=== PATIENT | female | born 1945 | race Caucasian/White ===

== ENCOUNTER 2018-02-22 18:06 | Inpatient (IN) | payer MEDICARE, OTHER ==
[~2018-02-22] VITALS: Ht 152.4 cm; Wt 85.3 kg
[2018-02-22] MEDS ORDERED: CHOL100011 PO (20:08)
[2018-02-22] MEDS ORDERED: LEVO112T5 PO (20:08)
[2018-02-22] MEDS ORDERED: ENAL10TA PO (20:08)
[2018-02-22] MEDS ORDERED: BUSP10TA PO (20:08)
[2018-02-22] MEDS ORDERED: ESOM20CA PO (20:08)
[2018-02-22] MEDS ORDERED: QUET300T5 PO (20:08)
[2018-02-22] MEDS ORDERED: FEBU40TA PO (20:08)
[2018-02-22] MEDS ORDERED: SERT100T PO (20:08)
[2018-02-22] MEDS ORDERED: LORAZEPAM IM PRN (20:30)
[2018-02-22] MEDS ORDERED: HALDOL PO PRN ×2 (20:30)
[2018-02-22] MEDS ORDERED: HALDOL IM PRN (20:30)
[2018-02-22] MEDS ORDERED: ATIVAN PO PRN (20:30)
[2018-02-22 21:00] VITALS: BP 154/75
--- NOTE | 2018-02-22 21:30 | NUR ---
Admission 72 year old, , retired, female presents to [facility] with daughter and grandaughter, as a direct admit from [facility] ED on voluntary status for depression with psychotic features. The patient's family contacted her psychiatrist, Dr. Brown, after the patient has had increased confusion with paranoia and decrease in "ability to function" and was referred here for inpatient admission. The patient presents to the unit anxious and tearful with complaint of depression and anxiety which is characterized by tearfulness, feelings of paranoia AEB belief that people are watching her house and tampering with her phone, expressing feelings of worthlessness AEB statement "I feel like a burden", confirming feelings of hopelessness, expressing feelings of guilt over inability to help care for older sister, loss of motivation, decreased sleep for the past several days at two to four hours a night, and decreased appetite over the past week. The patient also reports problems with short term memory which the family reports has been severe over the past week. The patient has difficulty focusing on topics of converation at times and must be reminded frequently. The onset of depression was two years ago two and precipated by multiple deaths over the past two years. The current symptoms have been worse according to the family over the past few weeks and aggravated by stress from working daily after three years of being home and unemployed. Her symptoms are further aggravated by decreased sleep and concern over the health of her 95 year old sister. The patient is treated by Dr. Brown. The family reports they are unsure if the patient has been taking her prescribed medications appropriately.
[2018-02-22] MEDS: BUSPAR PO SCH (21:36)
--- NOTE | 2018-02-22 21:39 | PCM.EKG ---
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
[2018-02-22] MEDS ORDERED: SEROQUEL ONE (21:50)
--- NOTE | 2018-02-22 22:01 | NUR ---
SEROQUEL 300MG PO ADMIN PER ANGELES MORRIS RN. MED IS NON FORMULARY AND NOT AVAILABLE ON [facility]. PAPER [facility] FILLED OUT.
--- NOTE | 2018-02-22 23:02 | PSYCH ---
DATE OF SERVICE: 02/22/2018 INITIAL PSYCHIATRIC EVALUATION CHIEF COMPLAINT: "I have been losing my mind." HISTORY OF PRESENT ILLNESS: The patient is a 72-year-old female who is a voluntary admission to the Behavioral Health Unit at the [facility]. The patient was referred by Dr. Wayne Brown from [facility]. The patient reports she has had increased confusion over the past few weeks. She reports having severe depression. She reports having vegetative symptoms. She reports having some suicidal thoughts. She states that she will be cooperative on this unit. She denies homicidal ideation. She has a slow thought process. She reports she has been sleeping poorly at night. She has a decreased appetite and has lost 25 pounds over the past 3 months. The patient has feelings of guilt. She has overwhelmed easily. She has a poor concentration level. She has a decreased interest in activities. She has psychomotor retardation. She reports having auditory and visual hallucinations. She has paranoia that people are out to get her. She is not currently manic or hypomanic. She reports a high anxiety level. She denies having any anxiety attacks. She voices no other concerns at this time. She does have a history of chronic pain issues. PAST PSYCHIATRIC HISTORY: The patient has been hospitalized at the [facility] in [place], [place] in the past. She has been hospitalized at the [facility] in the past. She has been seen by , Dr. Otto and Dr. Brown in the past. She has been on multiple psychotropic medications in the past. She reports that Cymbalta was helpful in the past. She is currently on Zoloft, which she does not think is very helpful. She has never attempted suicide before. PAST MEDICAL HISTORY: 1. Hypertension. 2. Hypothyroidism. 3. History of breast cancer. 4. History of back surgery. ALLERGIES: 1. ASPIRIN. 2. CELECOXIB. 3. CODEINE. 4. CYCLOBENZAPRINE. 5. PREGABALIN. 6. ZOLPIDEM. CURRENT MEDICATIONS: 1. Vitamin B12 p.o. daily. 2. Seroquel 100 mg p.o. at bedtime. 3. Levothyroxine 112 mcg p.o. daily. 4. Enalapril 10 mg p.o. b.i.d. 5. Zoloft 150 mg p.o. daily. 6. BuSpar 10 mg p.o. b.i.d. 7. Calcium/vitamin D p.o. b.i.d. 8. Multivitamin p.o. daily. 9. On 4 liters of oxygen at bedtime. FAMILY PSYCHIATRIC HISTORY: The patient reports significant mental health problems in her family. She reports her mother and sister both have depression. She reports family members have been on multiple psychotropic medications in the past. SOCIAL HISTORY: The patient is and lives with her . Her currently works. She is not working and staying at home. She has not been driving over the past few weeks. She denies using alcohol, illicit drugs or tobacco. She smoked cigarettes in the past. She has two daughters. She reports not functioning well at home. OBJECTIVE: VITAL SIGNS: The patient's vital signs were stable. She is on 4 liters of oxygen at night. Her weight is 199 pounds. She has lost 25 pounds over the past 3 months. Her height is 5 feet 2 inches. GENERAL: She was in no physical pain or distress at the time of the interview. REVIEW OF SYSTEMS: CONSTITUTIONAL: Recent weight loss. Some fatigue. Some insomnia. NEUROLOGICAL: No tremors. No weakness. No dizziness. PSYCHIATRIC: Positive for depression. Positive for anxiety. Positive for psychosis. No mariaelena. GASTROINTESTINAL: No diarrhea, no nausea, no constipation, no GERD symptoms, no vomiting. GENITOURINARY: No problems urinating. No pain on urination. CARDIOVASCULAR: No chest pain or chest palpitations. RESPIRATORY: No shortness of breath. No wheezing or coughing. SKIN: No problems reported. ENDOCRINE: No heat or cold intolerance. EXTREMITIES: No swelling or edema. EYES: No recent changes in vision. EARS: No recent changes in hearing. Review of systems otherwise negative, reviewed by Dr. Yancey. MENTAL STATUS EXAMINATION: MUSCLE STRENGTH AND TONE: Within normal limits for age. GAIT AND STATION: Within normal limits for age. APPEARANCE: Well-groomed and good hygiene. Appears stated age. Casual attire. Normal weight. Her family states that she has aged over the past few years. ATTITUDE AND BEHAVIOR: Cooperative. Good eye contact. Psychomotor retardation. MOOD AND AFFECT: Mood is severely depressed. Affect is guarded and dysthymic. ATTENTION AND CONCENTRATION: Fair attention and fair concentration. ORIENTATION: Fully oriented for interview. Able to sign in voluntarily. SPEECH: Regular rate and volume. JUDGEMENT AND INSIGHT: Fair judgment, fair insight. THOUGHT PROCESS: Logical and goal directed at times. Loose and tangential at times. LANGUAGE: Mongolian. THOUGHT CONTENT: Negative for suicidal or homicidal ideation at this time. She had suicidal thoughts earlier today. She feels hopeless and helpless. No auditory or visual hallucinations currently. She reports having constant auditory and visual hallucinations. She has paranoia. FUND OF KNOWLEDGE: Within normal limits. ASSOCIATIONS: Loose associations at times. MEMORY: Recent memory has decreased recently. Remote memory intact. STRENGTHS: Good family support. Good physical health. WEAKNESSES: Loss of memory. Chronic severe depressive symptoms. COGNITIVE IMPAIRMENTS: Yes. ASSESSMENT: Major depressive disorder with psychotic features; generalized anxiety disorder; dementia; insomnia. PROGNOSIS: Fair to guarded. ESTIMATED LENGTH OF STAY: 7-10 days. TREATMENT PLAN: 1. The patient will be a voluntary admission to the Behavioral Health Unit at the [facility]. 2. The patient will be discontinued on Zoloft. The patient will be started on Cymbalta 60 mg p.o. daily. The patient will continue Seroquel 300 mg p.o. at bedtime and BuSpar 10 mg p.o. b.i.d. The patient will be started on Haldol 2 mg p.o. or IM q. 6 hours p.r.n. hallucinations and Ativan 0.5 mg p.o. or IM q. 6 hours p.r.n. anxiety. 3. The patient will see the general medical doctor for general medical health issues. 4. The patient was encouraged to participate in all groups and activities. Jayne Yancey IV MD DR: /bradford JOB# [id number]
[2018-02-23] MEDS: SYNTHROID PO SCH (06:07)
[2018-02-23 07:39] VITALS: BP 148/61
[2018-02-23] MEDS: BUSPAR PO SCH ×2 (08:53→21:23)
[2018-02-23] MEDS: CYMBALTA PO SCH (08:53)
--- NOTE | 2018-02-23 09:00 | NUR ---
AM MEDS WHEN GIVING AM MEDS FOUND PT IN HER ROOM SITTING ON HER BED. EXPLAINED TO PT THAT HAD HER CYMBALTA AND HER BUSPAR. ASKED PT IF SHE WOULD LIKE TO TAKE THEM THIS MORNING. PT STATED "YES SHE WOULD" AND REACHED FOR THE CUP WITH THE MEDS IN IT. PT TOOK PILLS AND SWALLOWED THEM WITH SOME WATER.
--- NOTE | 2018-02-23 10:14 | NUR ---
Telemed Pt was seen by Isatu Mejia DNP via telemed. No new orders received @ this time. Pt was provided with information regarding changes in medications.
--- NOTE | 2018-02-23 10:14 | PRM.PN ---
Mood: ISOLATING TO HER ROOM Sleep: SLEPT 7 HOURS LAST NIGHT Appetite: SKIPPED BREAKFAST TODAY Suidical thoughts: DENIES Homicidal thoughts: DENIES Recent stressors: WORKING OUTSIDE THE HOME, CHRONIC KLONOPIN STOPPED Family support: GOOD Aggressive Behavior: NONE NEEDED Ability to Perform ADL'sc: GOOD Psychotic sympstoms: PARANOID ABOUT "PLAYING MIND GAMES" Manic Symptoms: NONE NOTED Living situation: WITH SPOUSE Illicit Drug usec: NONE Alcoholo use: NONE Tobacco use: NONE Family,PT,Surgical,&Current HX: (1) Major depressive disorder with psychotic features Anxity Symptoms: PRESENT, QUESTIONABLE PANIC ATTACKS Anger/Irritablility: DENIES Muscle Strength & Tone: WNL Gait & Station: WNL Appearance: Casual attire, Normal weight, Appears age stated Attitude & Behaviour: Cooperative/Pleasant, Good eye contact, Psychomotor retardation Mood & Affect: Flat, Depressed Orientation: Fully oriented per interv Attention/Concentration: Poor attention, Poor concentration Speech: Reg rate/vol/rhyth/prosod Judgement/Insight: Poor judgement, Poor insight Thought Process: Linear/goal directed Language: Maltese Thought content/Abnormal/Psych: None/normal Fund of Knowledge: WNL Associations: WNL/Normal Associations Memory (recent and remote): Recent memory repaired Constitutional: None Neurological: None Psychiatric: Depressed, Anxious, Psychosis [place] I: MDD, SEVERE WITH PSYCHOTIC FEATURES [place] II: DEFERRED [place] III: SEE PMH AND MEDICAL CHART [place] IV: STRESS OF MENTAL ILLNESS [place] V: 25 Assessment/Plan Assessment/Plan Patient History: FHx: depression G8 SISTER FHx: suicide Cousin, Onset:Unknown (The patient talks about having a close cousin that completed suicide "a long time ago") Plan Vital Signs Date Time Temp Pulse Resp B/P (MAP) Pulse Ox O2 Delivery O2 Flow Rate FiO2 02/23/18 07:39 97.9 91 16 148/61 (90) 93 Room Air 97.9 Allergies Coded Allergies Type Severity Reaction Last Updated Verified aspirin Allergy Unknown 02/22/18 Yes celecoxib Allergy Unknown 02/22/18 Yes codeine Allergy Unknown 02/22/18 Yes cyclobenzaprine Allergy Unknown 02/22/18 Yes pregabalin Allergy Unknown 02/22/18 Yes zolpidem Allergy Unknown 02/22/18 Yes Intake and Output 02/23/18 07:00 Intake Total 50 ml Balance 50 ml Intake Oral 50 ml # Voids 2 THE PATIENT WAS SEEN BY GAURI ROTHMAN VIA TELEMEDICINE EQUIPMENT (SUPPORTED BY [facility]) ALONG WITH THE TREATMENT TEAM. CYMBALTA WAS STARTED YESTERDAY,SERTRALINE WAS STOPPED. SHE REPORTS THAT SHE THINKS THAT HER HAS BEEN "PLAYING MIND TRICKS" ON HER. SHE FEELS THAT HE IS TIRED OF TAKING CARE OF HER. SHE DENIES SI/HI. SHE DOES ENDORSE HAVING DEPRESSION AND ANXIETY. SHE SLEPT LAST NIGHT AND IS TAKING HER MEDICATIONS. SHE REPORTS THAT SHE WAS TAKEN OFF CHRONIC KLONOPIN 3 WEEKS AGO AND SHE FEELS THAT RECENT MEDICATION CHANGES ARE CONTRIBUTING TO HER RECENT DECLINE. ASSESSMENT: MDD, SEVERE WITH PSYCHOTIC FEATURES PLAN: 1. CONTINUE BEHAVIORAL HEALTH MANAGEMENT 2. CONTINUE CURRENT MEDICATIONS PRESCRIBED. STAFF AGREEABLE WITH PLAN 3. ALL PATIENT QUESTIONS ANSWERED RELATED TO MEDICATIONS, PLAN OF CARE, AND EXPECTED OUTCOMES. 4. SAFETY PLAN DISCUSSED. 16 MINUTES SPENT IN SUPPORTIVE THERAPY AND BEHAVIOR MODIFICATION. GAURI ROTHMAN NP Feb 23, 2018 10:14
--- NOTE | 2018-02-23 10:20 | PRM.CONS ---
Consultation History of Present Illness History of Patient Comments Consulting Physician: Dr Yancey, Behavioral Health Reason for Consult: Medical management and Clearance Chief Complaint: None HPI: 72 y/o F with hx of HTN, and Hypothyroidism amongst other co-morbidities who was transferred to our [facility] from [facility] for change in level of consciousness, increased anxiety, and worsening symptoms of depression and paranoia. She has history of hypothyroidisn, HTN, chronic OA HLD , gout, asthma, CKD and mild dementia. She takes Vitamin B12, Esomeprazole, Enalapril, Levothyroxine, calcium tabs and multivitamins in addition to her psych meds. These have been restarted on getting to us. Her Cr prior to leaving [place] was ...She was cooperative during this encounter and denies any new complaints. She has elevated LDL and Total Cholesterol from testing here at [facility]; and A1C is 6.1. Otherwise, she appears to be in good health. She will need baseline labs for [facility]. Allergies: Lyrica Flexeril Celebrex Codeine Ambien Aspirin PMH: Hypothyroidisn, HTN, Chronic OA HLD, Gout, Asthma, CKD Pseudodementia Hx of Breast Cancer Osteporosis Panic attack Hyperglycemia Depression Anxiety Restless Leg Syndrome Diverticulitis Fibromyalgia PSHx: Unknown Family Hx: Father at 73 from Asphyxiation and OA Mother at 87: OA and HI Brothers None Sister 1: at 41 from Heart attack Sister 2: in her 50s from Heart attack in 2016 Sister 3: s/p TKR at age 87, Also dementia and HI Sister 4: Alive and Well Sister 5: Alive and Well Daughter 1: Scokliosis. Alive Daughter 2: Alive and Well. Physical Exam: General: Elderly Female lying in bed initially but got up and sat up when I walked in. Well nourished HEENT: Normocephalic and Atraumatic. 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 No murmurs RS: CTA. No wheezes GI: Soft abd. No organomegaly Extremeties: No edema Laboratory Test 02/23/18 06:58: Hemoglobin A1c 6.1, Triglycerides Level 122, Cholesterol Level 214, LDL Cholesterol, Calculated 121.6, VLDL Cholesterol 24.4, HDL Cholesterol 68, Cholesterol Ratio (LDL/HDL) [id number] Review of Systems Constitutional: Fever, Chills Eyes: Pain, Vision change, Redness ENT: Ear pain, Ear discharge Respiratory: Cough, Shortness of breath Cardiovascular: Chest Pain, Palpitations Gastrointestinal: Nausea, Vomiting Genitourinary: Dysuria, Frequency, Incontinence Musculoskeletal: neck pain, shoulder pain Skin: Rash, Lesions Neurological: Weakness, Numbness Allergies: Coded Allergies: aspirin (Verified Allergy, Unknown, 02/22/18) celecoxib (Verified Allergy, Unknown, 02/22/18) codeine (Verified Allergy, Unknown, 02/22/18) cyclobenzaprine (Verified Allergy, Unknown, 02/22/18) pregabalin (Verified Allergy, Unknown, 02/22/18) zolpidem (Verified Allergy, Unknown, 02/22/18) Scheduled Buspirone Hcl (Buspirone Hcl), 10 MG PO BID, (Reported) Cholecalciferol (Vitamin D3) (Vitamin D), 1,000 UNIT PO DAILY24, (Reported) Enalapril Maleate (Enalapril Maleate), 10 MG PO BID, (Reported) Febuxostat (Uloric), 40 MG PO DAILY24, (Reported) Levothyroxine Sodium (Levothyroxine Sodium), 112 MCG PO ACB, (Reported) Quetiapine Fumarate (Seroquel), 300 MG PO HS, (Reported) Sertraline Hcl (Zoloft), 100 MG PO DAILY24, (Reported) Scheduled PRN Esomeprazole Magnesium (Nexium), 20 MG PO DAILY24 PRN for INDIGESTION, (Reported ) VTE VTE Risk Total Score: 2 VTE Risk Score VTE Risk: Score 0-1 = Low Risk (Aggressive mobilization; early ambulation; no VTE prophylaxis required) Score 2: Moderate Risk (Intermittent/Pneumatic Compression Device OR Lovenox/Heparin/Coumadin) Score 3-4: High Risk (Intermittent/Pneumatic Compression Device AND Lovenox/Heparin/Coumadin) Score > or =5: Highest Risk (Intermittent/Pneumatic Compression Device AND Lovenox/Heparin/Coumadin) VTE Treatment Early ambulation Antico:Hep/LMWH/Coum/Xarelto: No Mechanical device ordered: No Assessment/Plan Assessment/Plan Assessment/Plan HTN, Chronic OA Hypothyroidism; HLD, Gout, Asthma, CKD Pseudodementia Hx of Breast Cancer Osteporosis Panic attack Hyperglycemia Depression Anxiety Restless Leg Syndrome Diverticulitis Fibromyalgia PLAN: I agree with restarting Home meds Will need CBC and CMP for baseline labs, We know she has Stage IV CKD from accompanying paper work from [place]. Avoid Nephrotoxic meds including NSAIDs Mildly Diabetic. Advise to stay on a diabetic diet but monitor FS Glu Continue diet control of HLD. If becomes concerning, add some statin PRN bronchodilators if needed Early ambulation for DVT Ppx GI Ppx with po pepcid Patient History: FHx: depression G8 SISTER FHx: suicide Cousin, Onset:Unknown (The patient talks about having a close cousin that completed suicide "a long time ago") Duration Duration or Time Spent with Pa: 38minutes COTY YI DO Feb 23, 2018 10:20
--- NOTE | 2018-02-23 10:45 | NUR ---
SW ASSESSMENTS: SW ATTEMPTED SW ASSESSMENTS BUT PT WOULD JUST LOOK AT HER AND STATE "I DON'T KNOW". PT DID NOT WANT TO PARTICIPATE IN ASSESSMENTS AT THIS TIME. SW WILL RE-ATTEMPT AT A LATER WHEN AND IF PT DECIDES SHE WANTS TO ANSWER THIS WORKERS QUESTIONS.
[2018-02-23 11:12] LABS: BASOPHIL % 0.6 % (0.0-0.2); EOSINOPHIL # 0.2 10^3/uL (0.0-0.2); EOSINOPHIL % 2.7 % (0.0-5.0); HEMOGLOBIN 13.1 g/dL (12.0-15.0); LYMPHOCYTES # 2.2 10^3/uL (1.0-4.8); LYMPHOCYTES % 31.3 % (24.0-44.0); MEAN CELL HGB 31.2 pg (26-34); MEAN CELL HGB CONCENTRATION 33.4 g/dL (33-37); MEAN CORP VOLUME 93.3 fL (78-100); MEAN PLATELET VOLUME 11.9 fL (7.8-11.0); MONOCYTES # 0.9 10^3/uL (0.3-0.8); MONOCYTES % 12.5 % (5.0-12.0); NEUTROPHIL # 3.7 10^3/uL (1.8-7.7); NEUTROPHILS % 52.8 % (41.0-85.0); NUCLEATED RED BLOOD CELLS 0 % (0-0); PLATELET COUNT 218 10^3/uL (150-400); RED CELL DISTRIBUTION WIDTH 14.5 % (11.5-14.5); WHITE BLOOD CELL 7.1 10^3/uL (4.5-11.0)
[2018-02-23 11:19] LABS: CALCIUM 9.3 mg/dL (8.4-10.5); CARBON DIOXIDE 23.3 mmol/L (20.0-32)
--- NOTE | 2018-02-23 13:07 | NUR ---
CONSENTS ATTEMPT TO GET CONSENTS SIGNED BY PT. PT JUST KEPT STARING AT THE BELONGINGS PAGE WHEN ASKING FOR HER TO SIGN. EXPLAINED TO PT IT WAS TO VERIFY THAT WHAT WAS LISTED WAS WHAT PT BROUGHT IN. PT JUST STARED AT IT. WHEN WENT OVER IT WITH PT PT THEN TRIED TO BARNEY OFF STUFF THAT WAS JUST TRASH. EXPLAINED THAT CAN NOT BARNEY OFF ANYTHING UNTIL SHE LEAVES. SHE JUST STARED AT IT. EXPLAINED IF DID NOT WANT TO SIGN THEN WOULD COME BACK TO IT. WENT ON TO THE AGREEMENT ABOUT UNIT. WHEN READ THE FIRST TWO ITEMS TO PT THE PT REPLIED "YOU MEAN I AM STAYING HERE?" EXPLAINED TO PT THAT YES SHE WAS STAYING HER. SHE WAS IN THE [facility] THE [facility] UNIT. SHE WOULD BE HERE FOR A SHORT LENGTH OF TIME TO GET HER MEDICATION ADJUSTED TO HELP HER DEPRESSION. PT THEN JUST PUT HER HEAD IN HER HANDS. INSTRUCTED THE RN ON INABILITY TO GET CONSENTS SIGNED BY PT.
--- NOTE | 2018-02-23 17:30 | NUR ---
CONSENTS ATTEMPTED TO GET MED CONSENTS SIGNED AT THIS TIME. EXPLAINED TO PT THAT TO CONTINUE TO GIVE HER MEDICATIONS WE NEED HER CONSENTS TO GIVE THE MEDICATIONS. PT JUST SHOOK HER HEAD IN A NO TYPE SHAKE. ASKED PT IF SHE FELT LIKE SHE WAS GOING TO BE HERE FOREVER. PT STATE "YES". ASSURED PT THAT WAS NOT THE CASE. EXPLAINED TO PT THAT SHE WAS HER TO GET HER MEDICATION ADJUSTED AND THEN SHE WOULD GO BACK HOME AND GO BACK TO SEEING DR ERICKSON SHE WAS BEFORE. ALSO EXPLAINED TO PT THAT SHE WAS IN THE [facility] UNIT OF THE [facility]. AND THIS UNIT IS PART OF THE HOSPITAL PEOPLE DO NOT STAY IN THE HOSPITAL FOREVER. PT STATED "I FEEL LIKE IT". PT UNABLE TO LOOSE THE FEELING THAT THIS IS PERMANENT. PT WILL NOT SIGN THE MEDICAL CONSENTS. DID EXPLAIN TO RN HOW PT FEELS AND DOES NOT WANT TO SIGN- PT IS VOLUNTARY.
--- NOTE | 2018-02-23 18:09 | NUR ---
PIRP P: Withdrawn, depressed, anxious, thought-blocking, delusions I: Monitor for changes in usual behavior, q15 min monitoring, assess for psychotic symtpoms, assist with differentiating between internal and external reality, give clear and simple instructions, redirect with verbalization, re-orient to surroundings, reinforce unit rules, provide 1:1 to encourage expression of feelings, provide task-oriented activities, teach medication management, give medications as ordered, teach relaxation techniques, assess reasons for depression and anxiety R: Pt has isolated to room majority of shift, requires frequent encouragement to come out to day room. Has sat in day room during group activities, but has not actively participated. Has refused to sign paper consents regarding medications and unit rules, but has verbally agreed to take medications and has not requested to be discharged from facility. Exhibits paranoia and delusional thoughts with thought-blocking. Reports that she "can't focus," and states, "I feel like my is playing mind games with me." "I think medications are a big problem." Has been provided with educations regarding medication management multiples times by different staff members, requires reinforcement. P: Continue to educate regarding voluntary admission and medication management.
[2018-02-23 19:15] VITALS: BP 149/87
[2018-02-23] MEDS: SEROQUEL PO SCH (21:22)
--- NOTE | 2018-02-24 05:01 | NUR ---
Consents Consents for scheduled psychiatric medications signed and faxed. Patient declined to sign consents for PRN Ativan and Haldol and states that she will not take either of them.
[2018-02-24] MEDS: SYNTHROID PO SCH (06:07)
--- NOTE | 2018-02-24 06:07 | NUR ---
-P- Altered thought process, confusion, anxiety I- Q 15 minute safety checks, provide safe and supportive environment, provide medication as ordered, discuss importance of medication / tx compliance, give clear and simple instructions to patient, provided reality orientation as needed, teach relaxation techniques, assess reasons for depression and anxiety. R- The patient mostly remained seclusive to self in her room sitting on her bed. While awake, she appears very anxious and has been observed pacing room. She does report that she is depressed, but will not quantify. She states numerous times "I am just so confused about everything" and does not elaborate. She appears fearful that she will be in this facility [facility] and expresses feelings of guilt AEB statement "I should be taking care of my family instead of them taking care of me". The patient denies physical pain but reports emotional pain described as "heartache". The patient went to the dayroom with staff and peers to eat a snack only after multiple offers by all staff members. The patient becomes fixated at times on the belief that her family is "messing with me". The patient was compliant with scheduled medications but refuses PRN medications. P-Will continue with current treatment plan and monitor for safety.
[2018-02-24 08:24] VITALS: BP 140/78
[2018-02-24] MEDS: BUSPAR PO SCH ×2 (08:50→20:10)
[2018-02-24] MEDS: CYMBALTA PO SCH (08:50)
--- NOTE | 2018-02-24 10:10 | PRM.PN ---
Mood: "I DON'T KNOW HOW TO RATE IT (DEPRESSION)" Sleep: SLEPT 5.75 HOURS Appetite: LOW, DID NOT EAT BREAKFAST Suidical thoughts: DENIES Homicidal thoughts: DENIES Recent stressors: LEFT THE HOME FOR WORK, INCREASED DEPRESSION Family support: GOOD Aggressive Behavior: NONE NOTED Ability to Perform ADL'sc: NEEDS TO BE COAXED Psychotic sympstoms: "I'M TRYING TO IGURE THINGS OUT" Manic Symptoms: NONE NOTED Living situation: WITH SPOUSE Illicit Drug usec: NONE Alcoholo use: NONE Tobacco use: NONE Family,PT,Surgical,&Current HX: (1) Major depressive disorder with psychotic features Anxity Symptoms: ABOUT THE SAME Anger/Irritablility: DENIES Muscle Strength & Tone: WNL Gait & Station: WNL Appearance: Casual attire, Appears age stated Attitude & Behaviour: Cooperative/Pleasant, Good eye contact Mood & Affect: Flat Orientation: Fully oriented per interv Attention/Concentration: Fair attention, Fair concentration Speech: Reg rate/vol/rhyth/prosod Judgement/Insight: Poor judgement, Poor insight Thought Process: Linear/goal directed Language: Belarusian Thought content/Abnormal/Psych: None/normal Fund of Knowledge: WNL Associations: WNL/Normal Associations Memory (recent and remote): Gross int/not form assess Constitutional: Fatigue, Insomnia Neurological: None Psychiatric: Depressed, Anxious [place] I: MDD, SEVERE, ANXIETY [place] II: DEFERRED [place] III: SEE MEDICAL CHART/PMH [place] IV: SAFETY, STRESS OF MENTAL ILLNESS [place] V: 25 Assessment/Plan Assessment/Plan Patient History: FHx: depression G8 SISTER FHx: suicide Cousin, Onset:Unknown (The patient talks about having a close cousin that completed suicide "a long time ago") Plan Vital Signs Date Time Temp Pulse Resp B/P (MAP) Pulse Ox O2 Delivery O2 Flow Rate FiO2 02/24/18 08:24 97.9 102 12 140/78 (98) 97 Room Air 97.9 Allergies Coded Allergies Type Severity Reaction Last Updated Verified aspirin Allergy Unknown 02/22/18 Yes celecoxib Allergy Unknown 02/22/18 Yes codeine Allergy Unknown 02/22/18 Yes cyclobenzaprine Allergy Unknown 02/22/18 Yes pregabalin Allergy Unknown 02/22/18 Yes zolpidem Allergy Unknown 02/22/18 Yes Intake and Output 9/7/18 07:00 Intake Total 1140 ml Balance 1140 ml Intake Oral 1140 ml # Voids 4 # Bowel Movements 1 THE PATIENT WAS SEEN BY GAURI ROTHMAN VIA TELEMEDICINE EQUIPMENT (SUPPORTED BY [facility]) ALONG WITH THE TREATMENT TEAM. SHE IS VERY VAGUE WITH HER ANSWERS. SHE denies SI/HI AND WHEN ASKED ABOUT AH/VH SHE SIMPLY STATES SHE "TRYING TO FIGURE SOME THINGS OUT." SHE STATES THAT SHE WANTS HELP BUT WILL THEN SAY THAT SHE WANTS TO GO HOME. SHE TENDS TO ISOLATE HERSELF IN HER ROOM AND IS ATTENTION SEEKING WITH STAFF AT TIMES/. SHE DENIES ANY PROBLEMS WITH HER MEDICATIONS AT THIS TIME. SHE SLEPT POORLY LAST NIGHT AND DID NOT EAT BREAKFAST THIS MORNING. ASSESSMENT: MDD, SEVERE WITH PSYCHOTIC FEATURES. PLAN: 1. CONTINUE BEHAVIORAL HEALTH MANAGEMENT 2. CONTINUE CURRENT MEDICATIONS PRESCRIBED. STAFF AGREEABLE WITH PLAN 3. ALL PATIENT QUESTIONS ANSWERED RELATED TO MEDICATIONS, PLAN OF CARE, AND EXPECTED OUTCOMES. 4. SAFETY PLAN DISCUSSED. GAURI ROTHMAN NP Feb 24, 2018 10:10
--- NOTE | 2018-02-24 18:59 | NUR ---
PIRP P: Withdrawn, depressed, anxious I: Monitor for changes in usual behavior, q15 min monitoring, give clear and simple instructions, provide reality orientation, provide 1:1 to encourage expression of feelings, provide task-oriented activities, teach importance of adequate nutrition, encourage pt to alternate rest and activity, provide safe and supportive environment, assess reasons for depression/anxiety R: Pt has had withdrawn affect throughout shift. Will come out to day room with frequent encouragement and reinforcement by staff. Unable to rate depression and anxiety, denies suicidal ideation. Alert and oriented x 3, reports she is here "to get help." When pt encouraged to disclose feelings, states, "I don't know," or, "I'm just so confused." Exhibits physical symptoms of increased anxiety i.e restlessness, rocking back and forth, difficulty concentrating, elevated heart rate. Denies wanting PRN medication for anxiety. P: Continue to encourage expression of feelings and staying up OOB.
[2018-02-24 19:47] VITALS: BP 155/89
[2018-02-24] MEDS: SEROQUEL PO SCH (20:10)
[2018-02-24] MEDS ORDERED: HALDOL ONE (20:42)
--- NOTE | 2018-02-24 22:24 | NUR ---
medications/daughter interaction This nurse entered patients room with HS medications, daughter in room, daughter talking in little girl voice to get mother to take medications, patient took Buspar and Seroquel, daughter was explaining that it was just her normal night time medicine, when this nurse left room daughter came out and ask if that was only her regular meds that she wanted her to have her ativan and haldol, then she ask if i was a nurse and i stated yes, she then stated that she had already talked to the other 2 nurses that was here before and told them she needed to take the ativan and haldol so she could get better, i stated to daughter that i was not told anything by the day nurses and that i would check her medications and see what she had, the daughter was visibly upset and kept saying her mother needed to take those meds, i then told the daughter that the ativan and haldol was as needed and her mother was not having any behaviors so i would have to talk to my RN, i then talked to N Trustee RN and stated what the daughter had said to me
--- NOTE | 2018-02-24 22:30 | NUR ---
MEDICATION FOLLOWING SHIFT REPORT PT.'S DAUGHTER WAS STANDING IN HALLWAY AND TOLD THIS NURSE THAT SHE NEEDED TO TALK TO ONE OF THOSE NURSES AT THE NURSE'S DESK ABOUT HER MOTHER'S MEDICATION. YANET White RN AND MIKE Beckham RN WENT INTO CONFERENCE ROOM TO TALK TO PT.'S DAUGHTER. PT.TOOK HS MEDICATIONS AND DAUGHTER TOLD THIS NURSE SHE WAS UPSET BECAUSE HER MOTHER DID NOT GET THE ATIVAN AND HALDOL THAT SHE SAID SHE HAD TOLD THE TWO DAY NURSES THAT HER MOTHER NEEDED. IT WAS EXPLAINED TO DAUGHTER THAT THE PT. HAD NOT SIGNED THE CONSENTS AND SHE WAS A VOLUNTARY ADMIT. HER MOTHER WAS LYING QUIETLY IN BED AT THAT TIME. PT. STATED HER MOTHER WAS NOT GOING TO GET BETTER UNLESS SHE TAKES THOSE MEDICATIONS AND THAT THE MEDICATIONS SHE DID TAKE TONIGHT WERE HER REGULAR MEDICATIONS SHE NORMALLY TAKES. IT WAS EXPLAINED THE ATIVAN AND HALDOL WERE NEEDED MEDICATIONS. THE DAUGHTER STATED SHE WAS AN EMT AND HER DAUGHTER WAS A NURSE AT THE [employer] .THE DAUGHTER ATTEMPTED TO TALK HER MOTHER INTO SIGNING THE CONSENTS BUT SHE REFUSED REPEATEDLY.DAUGHTER STATED SHE WAS UPSET ALSO BECAUSE SHE EXPECTED HER MOTHER TO HAVE IMPROVED FROM THE LAST TIME SHE SAW HER AND SHE DID NOT THINK SHE HAD IMPROVED.
--- NOTE | 2018-02-25 05:28 | NUR ---
PIRP- P- ALTERED THOUGHT PROCESS I- PROVIDE MEDICATION ORDERED,Q 15 MIN. MONITORING,PROVIDE SAFE AND SUPPORTIVE ENVIRONMENT AND PROVIDE 1:1 INTERVENTION ALLOWING PT. TO EXPRESS THOUGHTS AND FEELINGS. R- PT.ORIENTED TIMES THREE. RATED DEPRESSION O AND ANXIETY 2. PT. DECLINED TO SIGN CONSENTS FOR ATIVAN PRN. PT.'S DAUGHTER HERE AND TRIED TO CONVINCE PT. TO SIGN CONSENT BUT PT. STATED SHE DID NOT WANT TO SIGN CONSENT OR TAKE ATIVAN. WHILE PT.'S DAUGHTER WAS HERE TRYING TO GET HER TO SIT UP ON THE SIDE OF BED, DAUGHTER TRYING TO ASSIST BY ATTEMPTING TO HELP HER PUT HER LEGS OFF THE BED. PT. WOULD HARDLY MOVE HER LEGS AND ARMS AND DID NOT SIT UP ON THE BED. WHEN HER DAUGHTER TALKED TO HER ASKING HER QUESTIONS PT. WOULDN'T HARDLY OPEN HER MOUTH WHEN TALKING BUT AFTER DAUGHTER LEFT, PT. GOT UP ON HER OWN WITH OUT DIFFICULTY ON SEVERAL OCCASIONS TONIGHT. DECLINED TO ATTEND GROUP.. PT. HAS HAD STEADY GAIT. SITTING ON SIDE OF BED AT THIS TIME. P- WILL CONTINUE WITH CURRENT TX. PLAN.
[2018-02-25] MEDS: SYNTHROID PO SCH (06:04)
[2018-02-25 08:41] VITALS: BP 145/81
[2018-02-25] MEDS: BUSPAR PO SCH ×2 (09:12→20:59)
[2018-02-25] MEDS: CYMBALTA PO SCH (09:13)
--- NOTE | 2018-02-25 12:46 | NUR ---
Lunch Patient refused lunch, I offered a ensure and she refused. She did how ever drink 1/2 of water from the green cup. CLAUDY Winslow notified.
--- NOTE | 2018-02-25 13:00 | NUR ---
PIRP: P: ALTERED THOUGHT PROCESS I: Q 15 MINUTE SAFETY CHECK, PROVIDE MEDICATIONS ORDERED BY PHYSICIANS, PROVIDE SAFE AND SUPPORTIVE ENVIRONMENT, 1;1 TO ALLOW PT. TO EXPRESS THOUGHTS AND FEELINGS. R: Q 15 MINUTE CHECKS FOR SAFETY DONE. PT. HAS TAKEN AL MEDS PRESCRIBED, PT. HAS A SAFE AND SUPPORTIVE ENVIRONMENT, PT. STATES SHE CANT REMEMBER IF SHE IS DEPRESSED OR ANXIOUS. DENIES ANY S/I IDEATION. PT. REFUSED TO EAT BREAKFAST AND LUNCH. STATED SHE WAS NOT HUNGARY. PT. REFUSED TO SHOWER TODAY.. PT. IS ALERT AND ORIENTED X 3. P: CONTINUE CURRENT TX PLAN.
--- NOTE | 2018-02-25 15:26 | PRM.PN ---
Mood: DEPRESSED, REFUSED TO TALK Sleep: SLEPT 2.75 HOURS Appetite: REFUSED BREAKFAST AND LUNCH TODAY. Suidical thoughts: DENIES Homicidal thoughts: DENIES Recent stressors: INCREASED DEPRESSION Family support: GOOD Aggressive Behavior: NONE NOTED Ability to Perform ADL'sc: GOOD, REFUSED SHOWER TODAY Psychotic sympstoms: DENIES Manic Symptoms: MOOD SWINGS Living situation: LIVES WITH SPOUSE Illicit Drug usec: NONE Alcoholo use: NONE Tobacco use: NONE Family,PT,Surgical,&Current HX: (1) Major depressive disorder with psychotic features Anxity Symptoms: DENIES Anger/Irritablility: PASSIVE AGGRESSIVE Muscle Strength & Tone: WNL Gait & Station: WNL Appearance: Well groomed/hygience, Casual attire, Appears age stated Attitude & Behaviour: Uncooperative, Poor eye contact, Psychomotor retardation Mood & Affect: Flat, Depressed Orientation: Fully oriented per interv Attention/Concentration: Poor attention, Poor concentration Speech: Reg rate/vol/rhyth/prosod Judgement/Insight: Poor judgement, Poor insight Thought Process: Loose Language: Omani Thought content/Abnormal/Psych: None/normal Fund of Knowledge: WNL Associations: WNL/Normal Associations Memory (recent and remote): Gross int/not form assess Constitutional: Insomnia Neurological: None Psychiatric: Depressed [place] I: MAJOR DEPRESSIVE DISORDER, SEVERE WITH PSYCHOTIC FEATURES [place] II: DEFERRED [place] III: SEE PMH/ MEDICAL CHART [place] IV: SAFETY [place] V: 20 Assessment/Plan Assessment/Plan Patient History: FHx: depression G8 SISTER FHx: suicide Cousin, Onset:Unknown (The patient talks about having a close cousin that completed suicide "a long time ago") Plan Vital Signs Date Time Temp Pulse Resp B/P (MAP) Pulse Ox O2 Delivery O2 Flow Rate FiO2 02/25/18 08:41 98.2 98 13 145/81 (102) 95 Room Air 98.2 Allergies Coded Allergies Type Severity Reaction Last Updated Verified aspirin Allergy Unknown 02/22/18 Yes celecoxib Allergy Unknown 02/22/18 Yes codeine Allergy Unknown 02/22/18 Yes cyclobenzaprine Allergy Unknown 02/22/18 Yes pregabalin Allergy Unknown 02/22/18 Yes zolpidem Allergy Unknown 02/22/18 Yes Intake and Output 02/25/18 07:00 Intake Total 890 ml Balance 890 ml Intake Oral 890 ml # Voids 4 THE PATIENT WAS SEEN BY GAURI ROTHMAN VIA TELEMEDICINE EQUIPMENT ([facility]ED [facility]) ALONG WITH THE TREATMENT TEAM. WILL NOT SIGN CONSENTS FOR PRN MEDICATIONS. SHE REFUSED BREAKFAST AND LUNCH. SHE IS TAKING HER OTHER MEDICATIONS PRESCRIBED. SHE ENTERED THE ROOM CLOSED HER EYES AND WOULD SHAKE HER HEAD BACK AND FORTH AND WOULD NOT ANSWER QUESTIONS. SHE WOULD NOT SPEAK LOUD ENOUGH FOR ME TO HEAR HER. WHEN ASKED IF SHE WOULD TALK TO ME SHE SAID IT WAS TOO MUCH AND SHE COULD NOT MAKE ANY DECISIONS, "IT WAS TOO MUCH." I ATTEMPTED TO ASK HER ABOUT MEDICATIONS SHE WAS TAKING AND HER RESPONSE WAS " I DON'T WANT TO TALK ABOUT MEDICATIONS." HER DAUGHTERS WERE THERE AND SHE REFUSED TO HAVE THEM COME IN TO HER VISIT BY REFUSING TO ANSWER ME AND HER NURSE CLAUDY MISTRY ABOUT THEM ENTERING THE ROOM. AFTER SEVERAL TIMES ASKING SHE EVENTUALLY SAID NO. BEHAVIOR IS CHILD LIKE IN MANNER. ASSESSMENT: MDD, SEVERE WITH PSYCHOTIC BEHAVIOR, ANXIETY PLAN: 1. CONTINUE BEHAVIORAL HEALTH MANAGEMENT 2. CONTINUE CURRENT MEDICATIONS PRESCRIBED. STAFF AGREEABLE WITH PLAN 3. ALL PATIENT QUESTIONS ANSWERED RELATED TO MEDICATIONS, PLAN OF CARE, AND EXPECTED OUTCOMES. 4. SAFETY PLAN DISCUSSED. GAURI ROTHMAN NP Feb 25, 2018 15:26
--- NOTE | 2018-02-25 15:30 | NUR ---
TELEMED: PT. SEEN BY Isatu BEARDEN VIA TELEMED. PT. WOULD NOT TALK WITH TUTOR COORDINATOR. NO NEW ORDERS RECEIVED.
[2018-02-25] MEDS: SEROQUEL PO SCH (21:00)
[2018-02-25 22:13] VITALS: BP 168/96
--- NOTE | 2018-02-26 02:53 | NUR ---
P- ALTERED THOUGHT PROCESS I- PROVIDED MEDICATION ORDERED,Q 15 MIN. MONITORING,PROVIDE SAFE AND SUPPORTIVE ENVIRONMENT AND PROVIDE 1:1 INTERVENTION ALLOWING PT. TO EXPRESS THOUGHTS AND FEELINGS. R- PT. ORIENTED TIMES THREE AND DENIES DEPRESSION AND ANXIETY. PT. DECLINED TO ATTEND GROUP. WHEN HS MEDICATION WERE OFFERED PT. REFUSED THEM. THEN ANOTHER NURSE OFFERED THEM AGAIN AND PT. TOOK THEM. QUIET AND DID NOT INITIATE INTERACTION. SITTING ON SIDE OF BED AT THIS TIME. P- WILL CONTINUE WENT TX. PLAN.
[2018-02-26] MEDS: SYNTHROID PO SCH (06:00)
[2018-02-26] MEDS: CYMBALTA PO SCH (09:11)
[2018-02-26] MEDS: BUSPAR PO SCH ×2 (09:11→21:21)
--- NOTE | 2018-02-26 11:30 | NUR ---
TELEMED: PT.SEEN Isatu BEARDEN VIA TELEMED. PT. DID TALK WITH SUPERINTENDENT TESTS MORE TODAY. PT. TOLD HER SHE DID NOT WANT HER MEDICINE INCREASED. NO NEW ORDERS RECEIVED.
--- NOTE | 2018-02-26 11:32 | PRM.PN ---
Mood: "NOT GOOD" WORSE THAN BEFORE ADMISSION Sleep: SLEPT 5.5 HOURS LAST NIGHT Appetite: POOR Suidical thoughts: DENIES Homicidal thoughts: DENIES Recent stressors: INCREASED DEPRESSION Family support: GOOD Aggressive Behavior: REFUSED MEDICATIONS Ability to Perform ADL'sc: GOOD Psychotic sympstoms: NONE NOTED Manic Symptoms: MOOD SWINGS Living situation: WITH SPOUSE Illicit Drug usec: NONE Alcoholo use: NONE Tobacco use: NONE Family,PT,Surgical,&Current HX: (1) Major depressive disorder with psychotic features Anxity Symptoms: MODERATE ANXEITY NOTES. "PROBABLY" WHEN ASKED ABOUT PANIC ATTACKS Anger/Irritablility: REFUSING MEDICATIONS Muscle Strength & Tone: WNL Gait & Station: Normal stance/post/gait Appearance: Appears age stated, Overweight Attitude & Behaviour: Poor eye contact, Psychomotor retardation Mood & Affect: Flat, Depressed Orientation: Fully oriented per interv Attention/Concentration: Poor attention, Poor concentration Speech: Reg rate/vol/rhyth/prosod Judgement/Insight: Poor judgement, Poor insight Thought Process: Loose Language: Bhutanese Thought content/Abnormal/Psych: None/normal Fund of Knowledge: Other (LIMITED DUE TO HER BEING VAGUE) Associations: KATIE Memory (recent and remote): Gross int/not form assess Constitutional: None Neurological: None Psychiatric: Depressed, Anxious [place] I: MAJOR DEPRESSIVE DISORDER SEVERE WITH PSYCHOTIC FEATURES [place] II: DEFERRED [place] III: SEE PMH/MEDICAL CHART [place] IV: INCREASED MENTAL ILLNESS [place] V: 30 Assessment/Plan Assessment/Plan Patient History: FHx: depression G8 SISTER FHx: suicide Cousin, Onset:Unknown (The patient talks about having a close cousin that completed suicide "a long time ago") Plan Vital Signs Date Time Temp Pulse Resp B/P (MAP) Pulse Ox O2 Delivery O2 Flow Rate FiO2 02/25/18 22:13 98.3 97 19 168/96 (120) 98 Room Air 98.3 Allergies Coded Allergies Type Severity Reaction Last Updated Verified aspirin Allergy Unknown 02/22/18 Yes celecoxib Allergy Unknown 02/22/18 Yes codeine Allergy Unknown 02/22/18 Yes cyclobenzaprine Allergy Unknown 02/22/18 Yes pregabalin Allergy Unknown 02/22/18 Yes zolpidem Allergy Unknown 02/22/18 Yes Intake and Output 02/26/18 07:00 Intake Total 608 ml Balance 608 ml Intake Oral 608 ml # Voids 3 THE PATIENT WAS SEEN BY GAURI ROTHMAN VIA TELEMEDICINE EQUIPMENT (SUPPORTED BY [facility]) ALONG WITH THE TREATMENT TEAM. SHE HAS BEEN REUSING HER MEDICATIONS WITHOUT EXTENSIVE TALKING. APPETITE IS LOW. SHE IS SLEEPING FAIR. SHE IS FULLY ORIENTED. SHE DOES NOT WANT TO TAKE " ANY MORE DRUGS." WHEN WE DISCUSSED MEDICATIONS OPTIONS SHE DID NOT WANT TO INCREASED OR CHANGE THEM. SHE DENIES SI/HI, AV/VH. SHE REPORTS LOW ENERGY. ASSESSMENT: MAJOR DEPRESSIVE DISORDER, ANXIETY PLAN: 1. CONTINUE BEHAVIORAL HEALTH MANAGEMENT 2. CONTINUE CURRENT MEDICATIONS PRESCRIBED. STAFF AGREEABLE WITH PLAN 3. ALL PATIENT QUESTIONS ANSWERED RELATED TO MEDICATIONS, PLAN OF CARE, AND EXPECTED OUTCOMES. 4. SAFETY PLAN DISCUSSED. GAURI ROTHMAN NP Feb 26, 2018 11:32
[2018-02-26 12:21] VITALS: BP 141/81
--- NOTE | 2018-02-26 17:57 | NUR ---
PIRP: P: ALTERATION IN MOOD I: PROVIDE SAFE AND SUPPORTIVE ENVIRONMENT, PROVIDE MEDS ORDERED, PROVIDE 1:1 FOR ALLOWING PT. TO EXPRESS THOUGHTS AND FEELINGS, MONITOR FOR SAFETY Q 15 MINUTES., PROVIDE QUIET ENVIRONMENT FOR SLEEP R: PT. HAS A QUIET ENVIRONMENT FOR SLEEP. PT SLEPT.5.5 HOURS LAST NIGHT. PT. IS TAKING MEDS ORDERED, PT. HAS 1:1 TO EXPRESS THOUGHTS AND FEELINGS, PT. IS MONITORED Q 15 MINUTES FOR SAFETY. PT. HAD A SHOWER TODAY. PT. DENIES ANY DEPRESSION, ANXIETY OR S/I. PT. PT. ATE SOME TOMATO SOUP FOR SUPPER. SHE DID NOT EAT ANY BREAKFAST OR LUNCH. PT. WAS HERE FOR VISITATION. P: CONTINUE CURRENT TX PLAN.
[2018-02-26 19:20] VITALS: BP 160/108
[2018-02-26] MEDS: SEROQUEL PO SCH (21:21)
[2018-02-26 21:57] VITALS: BP 160/78
--- NOTE | 2018-02-27 04:58 | NUR ---
PIRP- P- ALTERATION IN MOOD I- PROVIDE SAFE AND SUPPORTIVE ENVIRONMENT,Q 15 MIN. MONITORING,PROVIDE MEDICATION ORDERED. R-PT. WAS ORIENTED TIMES THREE. DENIED DEPRESSION AND RATED ANXIETY 5. DENIES SI TONIGHT. PT. HAD SPONT. AFFECT AND SMILED AT TIMES. INITIATED INTERACTION WITH FEMALE PEER AND STAFF. PARTICIPATED IN GROUP ACTIVITIES. ATE SNACKS AND TOOK MEDICATION ORDERED. RESTING IN BED AWAKE AT THIS TIME. P- WILL CONTINUE WITH CURRENT TX. PLAN.
[2018-02-27] MEDS: SYNTHROID PO SCH (05:54)
[2018-02-27 07:57] VITALS: BP 143/68
[2018-02-27] MEDS: CYMBALTA PO SCH (08:49)
[2018-02-27] MEDS: BUSPAR PO SCH ×2 (08:49→20:35)
--- NOTE | 2018-02-27 10:13 | PRM.PN ---
Mood: "I FEEL BAD" Sleep: SLEPT 6.5 HOURS Appetite: LOW Suidical thoughts: DENIES Homicidal thoughts: DENIES Recent stressors: INCREAED MENTAL ILLNESS Family support: GOOD Aggressive Behavior: NONE Ability to Perform ADL'sc: GOOD Psychotic sympstoms: "PROBABLY" SEEING AND HEARING HER CHILDREN Manic Symptoms: DENEIS Living situation: WITH SPOUSE Illicit Drug usec: NONE Alcoholo use: NONE Tobacco use: NONE Family,PT,Surgical,&Current HX: (1) Major depressive disorder with psychotic features Anxity Symptoms: PRESENT, "ANYTIME". REPORTS PANIC ATTACKS Anger/Irritablility: VAGUE AND EVASIVE IN ANSWERING HER QUESTIONS. Muscle Strength & Tone: WNL Gait & Station: WNL Appearance: Casual attire, Appears age stated, Overweight Attitude & Behaviour: Cooperative/Pleasant Mood & Affect: Flat, Depressed Orientation: Fully oriented per interv Attention/Concentration: Fair attention, Fair concentration Speech: Reg rate/vol/rhyth/prosod Judgement/Insight: Poor judgement, Poor insight Thought Process: Linear/goal directed Language: Maltese Thought content/Abnormal/Psych: A/V [place] (SHE REPORTS THAT SHE IS HEARING AND SEEING HER CHILDREN) Fund of Knowledge: Other Associations: WNL/Normal Associations Memory (recent and remote): Gross int/not form assess Constitutional: None Neurological: None Psychiatric: Depressed, Anxious, Psychosis [place] I: MAJOR DPERESSIVE DISORDER WITH PSYCHOTIC FEATURES [place] II: DEFERRED [place] III: SEE MEDICAL CHART/PMH [place] IV: SAFETY, INCREASED MENTAL ILLNESS [place] V: 30 Assessment/Plan Assessment/Plan Patient History: FHx: depression G8 SISTER FHx: suicide Cousin, Onset:Unknown (The patient talks about having a close cousin that completed suicide "a long time ago") Plan Vital Signs Date Time Temp Pulse Resp B/P (MAP) Pulse Ox O2 Delivery O2 Flow Rate FiO2 02/27/18 07:57 98.0 56 18 143/68 (93) 95 Room Air 98.0 Allergies Coded Allergies Type Severity Reaction Last Updated Verified aspirin Allergy Unknown 02/22/18 Yes celecoxib Allergy Unknown 02/22/18 Yes codeine Allergy Unknown 02/22/18 Yes cyclobenzaprine Allergy Unknown 02/22/18 Yes pregabalin Allergy Unknown 02/22/18 Yes zolpidem Allergy Unknown 02/22/18 Yes Intake and Output 02/27/18 07:00 Intake Total 765 ml Balance 765 ml Intake Oral 765 ml # Voids 6 THE PATIENT WAS SEEN BY GAURI ROTHMAN VIA TELEMEDICINE EQUIPMENT (SUPPORTED BY [facility]) ALONG WITH THE TREATMENT TEAM. SHE DISCLOSED TODAY THAT SHE HAS HAD AV/VH OF HER CHILDREN BOTH YOUNGER AND AT THEIR CURRENT AGE FOR "QUITE SOME TIME." SHE DENIES THIS YESTERDAY WHEN ASKED ABOUT HALLUCINATIONS. APPETITE IS LOW. SHE IS SLEEPING FAR, DAYTIME ENERGY IS LOW. SHE IS PARTICIPATING IN GROUPS. SHE DENIES SI/HI. SHE IS TOLERATING HER MEDICATIONS. ASSESSMENT: MAJOR DEPRESSIVE DISORDER WITH PSYCHOTIC FEATURES PLAN: 1. CONTINUE BEHAVIORAL HEALTH MANAGEMENT 2. INCREASE CYMBALTA TO 90 MG PO DAILY 30MG TO BE GIVEN NOW. CONTINUE ALL OTHER CURRENT MEDICATIONS PRESCRIBED. STAFF AGREEABLE WITH PLAN 3. ALL PATIENT QUESTIONS ANSWERED RELATED TO MEDICATIONS, PLAN OF CARE, AND EXPECTED OUTCOMES. 16 MINUTES SPENT IN SUPPORTIVE THERAPY AND BEHAVIOR MODIFICATION. 4. SAFETY PLAN DISCUSSED. GAURI ROTHMAN NP Feb 27, 2018 10:13
[2018-02-27] MEDS ORDERED: CYMBALTA PO STA (10:28)
--- NOTE | 2018-02-27 12:25 | NUR ---
LUNCH PT WOULD NOT EAT LUNCH. JUST SAT THERE. RN AND CHEN BOTH ENCOURAGED THE PT TO EAT. Addendum: 02/27/18 at 1226 by CHEN Jacques LVN Amended: Links added.
--- NOTE | 2018-02-27 17:50 | NUR ---
PIRP P: Alteration in mood, altered thought process I: Monitor for changes in usual behavior, q15 min monitoring, provide safe and supportive environment, provide task-oriented activities, set expectations for appropriate behavior, give clear and simple instructions, redirect with verbalization, provide positive feedback with appropriate behavior, teach importance of maintaining adequate nutrition, provide 1:1 to encourage expression of feelings, assess for psychotic symptoms R: Pt has had flat affect throughout shift, does not initiate interaction. Has sat out in day room, participates in some group activities, and has taken medications as ordered. Verbalizes feelings of depression and anxiety, but is unable to rate. Reports hearing and seeing her children @ times, despite them not being present. Denies SI/HI, no delusions or paranoia noted. Has had poor appetite and appears to exhibit attention-seeking behaviors. Pt witnessed other pt being assisted with feeding, and notified staff she couldn't eat unless she was fed. This RN approached pt and educated her on appropriate behaviors and need for independence. Pt angrily grabbed spoon, fed herself mashed potatoes, and tossed spoon onto tray. Refused to eat afternoon snack and supper tray. P: Continue to reinforce appropriate behaviors and provide education regarding medication management.
[2018-02-27 19:23] VITALS: BP 156/93
[2018-02-27] MEDS: SEROQUEL PO SCH (20:35)
--- NOTE | 2018-02-28 05:54 | NUR ---
-PIRP P- Altered thought process, confusion, anxiety I- Q 15 minute safety checks, provide safe and supportive environment, provide medication as ordered, discuss importance of medication / tx compliance, give clear and simple instructions to patient, provided reality orientation as needed, teach relaxation techniques, assess reasons for depression and anxiety. R- The patient remained in the dayroom with peers and staff at the beginning of the evening shift, but did not interact. She remained sitting with her back facing the television and was watchful of peers and does admit to paranoid thoughts. She appears to be responding to internal stimuli AEB thought blocking with delayed speech. The patient reports visual hallucinations described as "different things" and will not elaborate. She reports auditory hallucinations described as voices that she can not understand. The patient remains oriented x4. She reports depression described as "a little" but is unable to quantify. She denies thoughts of suicide or homicide. P-Will continue with current treatment plan and monitor for safety.
[2018-02-28] MEDS: SYNTHROID PO SCH (06:23)
[2018-02-28 07:13] VITALS: BP 131/58
[2018-02-28] MEDS ORDERED: CYMBALTA ONE (07:49)
[2018-02-28] MEDS: BUSPAR PO SCH ×2 (07:51→21:12)
[2018-02-28] MEDS: CYMBALTA PO SCH (07:51)
--- NOTE | 2018-02-28 08:13 | NUR ---
Behavior Pt finished shower with staff assistance, came out into caballero, rushed, and stating, "I need to go. My family needs me. I have to go home. I need to go." Began pacing, repeating need to leave, unable to redirect with verbalization. Walking up and down caballero with staff, stating, "Everything is wrong." "Just everything is wrong." "I've been in an accident." "My family needs me." Dr. Yancey was called and notified of pt behaviors, received orders to have pt seen via telemed by Isatu Mejia, DAPHNEY, CHEMICAL PLANT MANAGER. Pt's daughter, Marah Mitchell, was called and notified of behaviors. Allowed pt to talk to daughter, however, pt continue to repeat same phrases and began rocking back in forth in chair after being assisted to sit.
--- NOTE | 2018-02-28 08:26 | NUR ---
Status Pt sitting in chair in hallway, continues to repeat, "Let me go home. I need to go home. I've got to go home." Repetitively stating, "Oh God, Oh God, just please let me go home. Dear God, please let me go." Sitting with staff @ this time.
--- NOTE | 2018-02-28 08:40 | NUR ---
Telemed Pt was seen by Isatu Mejia, DAPHNEY, BACTERIOLOGY PROFESSOR. Does not respond to questions appropriately, rocking back and forth in chair, covering face with hands, pulling hair back. Stated, "There's nothing worse. There's nothing worse." "I can't feed myself." "There's nothing more important than life." When pt was asked if she was having thoughts of harming herself, pt stated, "Yes! Yes! Oh, yes!" When asked if she had plan, pt repeated, "Please let me go home. I need to go home." Pt refused to answer any more questions, was asked to go to own pt room until she was able to calm down. Pt acted as if she couldn't stand, required x 2 assist to stand and go to room. Able to adjust self onto bed.
--- NOTE | 2018-02-28 08:51 | PRM.PN ---
Mood: HYSTERICAL, CHILD LIKE BEHAVIOR Sleep: SLEPT 7.25 HOURS Appetite: UNABLE TO ASSESS DUE TO BEHAVIOR, REPORTS NOT BEING ABLE TO FEED HERSELF Suidical thoughts: MOANED YES WHEN ASKED Homicidal thoughts: WOULD NOT ANSWER Recent stressors: LEAVING THE HOME FOR WORK, INCREAED DEPRESSION Family support: GOOD Aggressive Behavior: NOT PHYSICALLY AGGRESSIVE, SLAMMED SPOON WHEN TOLD TO FEED HERSELF Ability to Perform ADL'sc: GOOD, WILL NOT DO THEM Psychotic sympstoms: REPORTED HER FAMILY WAS IN AN ACCIDENT, COULD NOT BE REDIRECTED Manic Symptoms: MOOD SWINGS Living situation: WITH SPOUSE Illicit Drug usec: NONE Alcoholo use: NONE Tobacco use: NONE Family,PT,Surgical,&Current HX: (1) Major depressive disorder with psychotic features Anxity Symptoms: HYSTERICAL AND SOBBING, COVERING HER EYES Anger/Irritablility: REFUSED TO CALM DOWN OR TALK TO ANYONE Muscle Strength & Tone: WNL Gait & Station: WNL Appearance: Disheveled, Casual attire, Overweight Attitude & Behaviour: Uncooperative, Poor eye contact (REFUSED TO OPEN EYES AND COVERED HER EYES WITH HER HANDS.) Mood & Affect: Iabile (CHILDLIKE TEMPER TANTRUM LIKE BEHAVIOR) Orientation: Fully oriented per interv Attention/Concentration: Poor attention, Poor concentration Speech: hyperverbal (RAMBI) Judgement/Insight: Poor judgement, Poor insight Thought Process: Loose Language: Latvian Thought content/Abnormal/Psych: Delusions Fund of Knowledge: Other (LIMITED) Associations: KATIE Memory (recent and remote): Gross int/not form assess Constitutional: None Neurological: None Psychiatric: Depressed, Anxious, Psychosis, Crying [place] I: MAJOR DEPRESSIVE DISORDER, SEVERE WITH PSYCHOTIC FEATURES [place] II: DEFERRED [place] III: SEE MEDICAL CHART/PMH [place] IV: SAFETY/INCREASED MENTAL ILLNESS [place] V: 25 Assessment/Plan Assessment/Plan Patient History: FHx: depression G8 SISTER FHx: suicide Cousin, Onset:Unknown (The patient talks about having a close cousin that completed suicide "a long time ago") Plan Vital Signs Date Time Temp Pulse Resp B/P (MAP) Pulse Ox O2 Delivery O2 Flow Rate FiO2 02/28/18 07:13 98.1 94 18 131/58 (82) 94 Room Air 98.1 Allergies Coded Allergies Type Severity Reaction Last Updated Verified aspirin Allergy Unknown 02/22/18 Yes celecoxib Allergy Unknown 02/22/18 Yes codeine Allergy Unknown 02/22/18 Yes cyclobenzaprine Allergy Unknown 02/22/18 Yes pregabalin Allergy Unknown 02/22/18 Yes zolpidem Allergy Unknown 02/22/18 Yes Intake and Output 02/28/18 07:00 Intake Total 340 ml Balance 340 ml Intake Oral 340 ml # Voids 3 THE PATIENT WAS SEEN BY GAURI ROTHMAN VIA TELEMEDICINE EQUIPMENT (SUPPORTED BY [facility]) ALONG WITH THE TREATMENT TEAM. SHE HAS REQUESTED TO GO HOME. UNFORTUNATELY, SHE WOULD NOT CALM DOWN ENOUGH TO SPEAK. WHEN ASKED IF SHE WAS HAVING THOUGHTS OF WANTING TO HURT HERSELF SHE REPEATED YES REPEATEDLY. SHE REPEATEDLY BEGGED TO GO HOME BUT WHEN WE TRIED TO GET HER TO CALM DOWN AND TALK SHE WOULD NOT AND KEPT SAYING THIS IS THE WORSE THING, AND WHEN ASKED WHAT WAS THE WORST THING SHE STATED NOT BEING ABLE TO FEED YOURSELF. WHEN ASKED ABOUT THE ACCIDENT SHE THOUGHT HER FAMILY WAS IN, SHE IGNORED IT. SHE TOOK HER MEDICATIONS THIS MORNING. SHE IS SLEEPING FAIRLY WELL. SHE TOOK HER SHOWER WITH NO PROBLEM THIS MORNING BUT UPON COMING OUT SHE BEGAN TO PACE AND STATING SHE NEEDED TO LEAVE AND HER FAMILY NEEDED HER. ON THE SECONG ATTEMPT TO SPEAK WITH HER AFTER SHE CALM DOWN SHE WOULD NO SPEAK. THE TREATMENT TEAM ADVISED HER THAT SHE NEEDED TO SPEAK IN ORDER TO MAINTAIN AUTHORITY TO MAKE HER MEDICAL DECISION HER FAMILY IS GOING TO SEEK COURT COMMITMENT DUE TO HER NOT BEING COOPERATIVE IN HER OWN CARE AND SHE VERBALIZED UNDERSTANDING OF ALL OF THIS BY NODDING HER HEAD BUT REFUSED TO SPEAK. ASSESSMENT: MAJOR DEPRESSIVE DISORDER, SEVERE WITH PSYCHOTIC FEATURES, BORDERLINE PERSONALITY DISORDER PLAN: 1. CONTINUE BEHAVIORAL HEALTH MANAGEMENT. SEEK COURT COMMITMENT PER FAMILY AND RECENT BEHAVIORS 2. CONTINUE CURRENT MEDICATIONS PRESCRIBED. STAFF AGREEABLE WITH PLAN 3. ALL PATIENT QUESTIONS ANSWERED RELATED TO MEDICATIONS, PLAN OF CARE, AND EXPECTED OUTCOMES. 4. SAFETY PLAN DISCUSSED. GAURI ROTHMAN NP Feb 28, 2018 08:51
--- NOTE | 2018-02-28 09:38 | NUR ---
Lizz Mejia, DNP, INSPECTOR attempted to continue assessment with pt, pt only answering select yes or no questions. Ned Barkley LMSW present, notified pt of need for change to involuntary status d/t pt stating, "yes," when asked if having thoughts of hurting self. Pt denies having suicidal plan @ this time. Involuntary court committal has been initiated.
--- NOTE | 2018-02-28 13:00 | NUR ---
SW ASSESSMENTS: PT REFUSES TO TALK TO THIS WORKER OR ANSWER ANY QUESTIONS. SW HAS ATTEMPTED TO COMPLETE ASSESSMENTS MULTIPLE TIMES. DUE TO PT WANTING TO LEAVE AND BEING A DANGER TO HER SELF, SW SECURED COURT PAPERS AND PT WILL BE INVOLUNTARILY COMMITTED INTO THE U AT THIS TIME. SW WILL REATTEMPT ASSESSMENTS AT A LATER TIME IF PT DECIDES SHE WANTS TO PARTICIPATE IN ASSESSMENTS.
--- NOTE | 2018-02-28 15:00 | NUR ---
PRN MEDICATION HALDOL ADMINISTERED PER PRN ORDER. NO S/S OF DISTRESS NOTED WILL MONITOR
--- NOTE | 2018-02-28 16:40 | NUR ---
Status Pt lying on left side, awake in bed. No distress noted. Has refused to get up for afternoon snack and supper.
--- NOTE | 2018-02-28 18:42 | NUR ---
PIRP P: Alteration in mood, altered thought process, SI I: Monitor for changes in usual behavior, q15 min monitoring, redirect with verbalization, set clear and appropriate boundaries, teach relaxation techniques, give clear and simple instructions, assess for hallucinations and delusions, re-orient to surroundings and reality as needed, provide 1:1 to encourage expression of feelings, provide task-oriented activities, provide safe and supportive environment, teach medication management, give medications as ordered, teach importance of adequate nutrition R: Pt had episode in A.M. after her shower, was pacing caballero, yelling out for staff to let her go home, unable to redirect. Voiced suicidal ideation to [facility] when being seen via telemed. Pt's admission status was changed from voluntary to involuntary d/t pt posing threat to self. Has isolated to room majority of shift, did require PRN admin of medication d/t thrashing around in bed, unable to console. After admin of PRN medication, pt rested in bed with eyes closed for approx 1-2hr, has been up OOB to go to restroom. Otherwise, has refused to eat, drink, or participate in group activities. Rated depression @ 8 and anxiety @ 3 on 0-10 scale. Does not voice suicidal plan. Exhibits varying delusions and paranoia, difficult to redirect with verbalization. P: Continue to reinforce appropriate behaviors and encourage adequate PO food and fluid intake.
[2018-02-28 20:08] VITALS: BP 140/70
[2018-02-28] MEDS: SEROQUEL PO SCH (21:12)
--- NOTE | 2018-03-01 04:53 | NUR ---
-PIRP P- Altered thought process, depression I- Q 15 minute safety checks, provide safe and supportive environment, provide medication as ordered, discuss importance of medication / tx compliance, give clear and simple instructions to patient, provided reality orientation as needed, teach relaxation techniques, assess reasons for depression and anxiety. R- The patient has remained seclusive to self in bed all shift. She answers questions appropriately. She refused offer of snack or to come to day room for social interaction. She reports she is upset because "now I will be here forever" after being placed on involuntary status for suicidal statement. When asked about this incident she only replies "I don't know". She reports she was feeling suicidal at the time but had no plan. She currently denies thoughts of suicide. She reports she has auditory and visual hallucinations but will not elaborate. She does not appear to be responding to internal stimuli at this time and has no delayed speech. The patient was medication compliant. No behavioral issues this shift. P-Will continue with current treatment plan and monitor for safety.
[2018-03-01] MEDS: SYNTHROID PO SCH (06:15)
[2018-03-01 07:30] VITALS: BP 137/71
--- NOTE | 2018-03-01 09:13 | PRM.PN ---
Mood: UP AND DOWN, MOOD IS DEPRESSED AND OVERWHELMED Sleep: SLEEPING OK AT NIGHT, REPORTEDLY SLEPT 10 HOURS LAST NIGHT Appetite: LOW APPETITE, SHE DOES NOT LIKE THE FOOD AT THE FACILITY Suidical thoughts: NONE REPORTED Homicidal thoughts: NONE REPORTED Recent stressors: STRESS OF MENTAL ILLNESS, SHE HAS ATTENTION SEEKING BEHAVIOR Family support: HER FAMILY IS SUPPORTIVE Aggressive Behavior: EXIT SEEKING BEHAVIOR, ATTENTION SEEKING BEHAVIOR Ability to Perform ADL'sc: ABLE TO DO HER ADLS Psychotic sympstoms: DELUSIONAL THINKING, PARANOIA, ODD THINKING, HALLUCINATIONS Manic Symptoms: MOOD SWINGS Living situation: WAS LIVING AT HOME WITH HER Illicit Drug usec: NONE REPORTED Alcoholo use: NONE REPORTED Tobacco use: NONE REPORTED Anxity Symptoms: MODERATE TO HIGH ANXIETY LEVEL Anger/Irritablility: PROBLEMS WITH ANGER AND IRRITABILITY Muscle Strength & Tone: WNL Gait & Station: Ataxic Appearance: Well groomed/hygience, Casual attire, Overweight Attitude & Behaviour: Uncooperative, Poor eye contact, Psychomotor agitation Mood & Affect: Iabile, Angry, Depressed Orientation: Fully oriented per interv Attention/Concentration: Fair attention, Fair concentration Speech: Impaired Judgement/Insight: Poor judgement, Poor insight Thought Process: Loose, Tangential Language: Vietnamese Thought content/Abnormal/Psych: A/V [place], Delusions Fund of Knowledge: Other Associations: KATIE Memory (recent and remote): Recent memory repaired, Remote memory repaired Constitutional: None Neurological: None Psychiatric: Depressed, Anxious, Psychosis, Crying [place] I: MDD WITH PSYCHOTIC FEATURES; ANXIETY, DELUSIONAL DISORDER, DEMENTIA [place] II: DEFERRED [place] III: REFER TO PMH/MEDICAL CHART [place] IV: STRESS OF MENTAL ILLNESS [place] V: GAF=30 Assessment/Plan Assessment/Plan Assessment/Plan Vital Signs Date Time Temp Pulse Resp B/P (MAP) Pulse Ox O2 Delivery O2 Flow Rate FiO2 03/01/18 07:30 97.9 86 18 137/71 (93) 95 Room Air 97.9 Allergies Coded Allergies aspirin (Verified Allergy, Unknown, 02/22/18) celecoxib (Verified Allergy, Unknown, 02/22/18) codeine (Verified Allergy, Unknown, 02/22/18) cyclobenzaprine (Verified Allergy, Unknown, 02/22/18) pregabalin (Verified Allergy, Unknown, 02/22/18) zolpidem (Verified Allergy, Unknown, 02/22/18) I & O 02/23/18 02:24 Thru 03/01/18 07:30 Intake Total 4153 ml Balance 4153 ml THE PATIENT WAS SEEN BY DR. CHARLTON VIA TELEMEDICINE EQUIPMENT ALONG WITH THE TREATMENT TEAM. THE PATIENT HAD A BAD DAY YESTERDAY. THE PATIENT WAS HAVING MOOD SWINGS. THE PATIENT HAS CRYING SPELLS. THE PATIENT THREATENED SUICIDE. THE PATIENT WAS GIVEN HALDOL 2MG IM YESTERDAY TO HELP CALM HER DOWN. THE PATIENT SLEPT 10 HOURS LAST NIGHT. THE PATIENT HAS A POOR APPETITE. THE PATIENT HAS THREATENED HER HAS BEING ABUSIVE. THE PATIENT WAS MADE INTO AN INVOLUNTARY ADMISSION YESTERDAY DUE TO THREATENING SUICIDE AND TRYING TO LEAVE. THE PATIENT HAS MOOD SWINGS. THE PATIENT HAS CRYING SPELLS. THE PATIENT'S MOOD IS DEPRESSED. HER AFFECT IS LABILE. THE PATIENT HAS ODD AND DELUSIONAL THINKING. ASSESSMENT: DELUSIONAL DISORDER, MAJOR DEPRESSIVE DISORDER WITH PSYCHOTIC FEATURES; GENERALIZED ANXIETY DISORDER, DEMENTIA PLAN: 1) CONTINUE BEHAVIORAL HEALTH MANAGEMENT. 2) START HALDOL 2MG PO BID. CONTINUE OTHER CURRENT MEDICATIONS AT CURRENT DOSES. SUPPORTIVE THERAPY GIVEN. THE PATIENT DENIES SI OR HI. SAFETY PLANS WERE DISCUSSED. 16 MINUTES SPENT IN SUPPORTIVE THERAPY. THE TREATMENT TEAM SPOKE WITH HER FAMILY ON THE PHONE. Problems: (1) Major depressive disorder with psychotic features Status: Acute ICD Code: F32.3 - Major depressive disorder, single episode, severe with psychotic features SNOMED: [id number] Patient History: FHx: depression G8 SISTER FHx: suicide Cousin, Onset:Unknown (The patient talks about having a close cousin that completed suicide "a long time ago") JOHANNY CHARLTON IV, MD Mar 01, 2018 09:13
--- NOTE | 2018-03-01 09:15 | NUR ---
TELEMEDICINE PT IN DAY ROOM REFUSED TO GO TO CONFERENCE ROOM TO SPEAK WITH DR CHARLTON, TELEMEDICINE AND TREATMENT TEAM MOVED TO DAY ROOM. WHEN ASKED IF PT IS DEPRESSED PT STATES, " I AM JUST CONFUSED". PT WOULD NOT STATES WHAT SHE IS CONFUSED ABOUT. PT WOULD NOT ANSWER ANY FURTHER QUESTIONS. NEW ORDERS RECEIVED FOR SCHEDULED HALDOL.
[2018-03-01] MEDS ORDERED: HALDOL ONE (09:41)
[2018-03-01] MEDS: CYMBALTA PO SCH (09:50)
[2018-03-01] MEDS: BUSPAR PO SCH ×2 (09:50→20:47)
--- NOTE | 2018-03-01 17:31 | NUR ---
PIRP P: Alteration in mood, altered thought process, SI I: Monitor for changes in usual behavior, q15 min monitoring, redirect with verbalization, set clear and appropriate boundaries, teach relaxation techniques, give clear and simple instructions, assess for hallucinations and delusions, re-orient to surroundings and reality as needed, provide 1:1 to encourage expression of feelings, provide task-oriented activities, provide safe and supportive environment, teach medication management, give medications as ordered, teach importance of adequate nutrition R: Behavior episodes shown during morning assessment. When asked if pt had any SI pt stated, " I am confused", would not say what she is confused about. Refused to come to treatment room to speak with Dr. Yancey. Medications changes made. Mood remains flat, withdraw, anxious, and angry at times. Refuses to eat and only drinks a small amount of water. Denies hallucinations. P: Continue to reinforce appropriate behaviors and encourage adequate PO food and fluid intake.
[2018-03-01 19:43] VITALS: BP 158/88
[2018-03-01] MEDS: SEROQUEL PO SCH (20:47)
[2018-03-01] MEDS: HALDOL PO SCH (20:48)
[2018-03-01] MEDS ORDERED: HALDOL PO SCH (21:00)
--- NOTE | 2018-03-02 05:01 | NUR ---
-PIRP P- Altered thought process, depression I- Q 15 minute safety checks, provide safe and supportive environment, provide medication as ordered, discuss importance of medication / tx compliance, give clear and simple instructions to patient, provided reality orientation as needed, teach relaxation techniques, assess reasons for depression and anxiety. R- The patient visited with her daughter at the beginning of the pm shift and then remained in dayroom watching television with peers. The patient reported that she "wasted" her day and is mad that she did not get to take a shower, which she did. When asked if she would like to take another shower, she refused. The patient was asked orientation questions and is oriented to time, place, and situation. She then approached staff five minutes later and stated "I am disoriented. I don't know the date, where I am, or why I am here". She followed that up with the question "what do I have to do to get out of here". The patient's behaviors appear to be manipulative in nature this evening. P-Will continue with current treatment plan and monitor for safety.
[2018-03-02] MEDS: SYNTHROID PO SCH (05:37)
[2018-03-02 08:50] VITALS: BP 115/71
[2018-03-02] MEDS: HALDOL PO SCH ×2 (09:00→20:49)
[2018-03-02] MEDS: BUSPAR PO SCH ×2 (09:00→20:49)
[2018-03-02] MEDS: CYMBALTA PO SCH (09:00)
--- NOTE | 2018-03-02 10:11 | NUR ---
TELEMEDICINE PT SPOKE WITH DR. ROTHMAN. PT STATES "I WANT TO GO HOME. IT WON'T GET ANY BETTER. MY HEART HURTS." EXPLAINED TO DR ROTHMAN ABOUT THE PROMPTING OF GETTING PT TO TAKE MEDICATIONS. PT STATES SHE HAS BEEN HAVING MOOD SWINGS AND PANIC ATTACKS. NO NEW MEDICATION CHANGES AT THIS TIME. PT ENCOURAGED TO CONTINUE TO TAKE MEDICATION. PT VERBALIZES UNDERSTANDING
--- NOTE | 2018-03-02 10:14 | PRM.PN ---
Mood: "VERY DEPRESSED" FEELS IT IS WORSE THAN IT WAS WHEN SHE WAS ADMITTED. Sleep: SLEPT 7.25 HOURS Appetite: LOW Suidical thoughts: DENIES Homicidal thoughts: DENIES Recent stressors: INCREASED MENTAL ILLNESS Family support: GOOD Aggressive Behavior: NONE NOTED Ability to Perform ADL'sc: GOOD, BUT SHE WILL REFUSE Psychotic sympstoms: HALLUCINATION NOTED ABOUT HER CHILDREN "PRETTY REGULAR" Manic Symptoms: MOOD SWINGS Living situation: WITH SPOUSE Illicit Drug usec: NONE Alcoholo use: NONE Tobacco use: NONE Family,PT,Surgical,&Current HX: (1) Major depressive disorder with psychotic features Anxity Symptoms: POSTIIVE, REPORTS DAILY PANIC ATTACKS. Anger/Irritablility: PRESENT UNABLE TO IDENTIFY A TRIGGER Muscle Strength & Tone: WNL Gait & Station: WNL Appearance: Casual attire, Appears age stated, Overweight Attitude & Behaviour: Cooperative/Pleasant, Good eye contact Mood & Affect: Flat, Depressed Orientation: Fully oriented per interv Attention/Concentration: Fair attention, Fair concentration Speech: Reg rate/vol/rhyth/prosod Judgement/Insight: Poor judgement, Poor insight Thought Process: Loose Language: Kiswahili Thought content/Abnormal/Psych: A/V [place] Fund of Knowledge: Other (LIMITED) Associations: KATIE Memory (recent and remote): Gross int/not form assess Constitutional: Fatigue Neurological: None Psychiatric: Depressed, Anxious, Psychosis [place] I: MAJOR DEPRESSIVE DISORDER WITH PSYCHOTIC FEATURES [place] II: BORDERLINE PERSONALITY DISORDER [place] III: SEE MEDICAL CHART/PMH [place] IV: BEHAVIORS/ SAFETY [place] V: 30 Assessment/Plan Assessment/Plan Patient History: FHx: depression G8 SISTER FHx: suicide Cousin, Onset:Unknown (The patient talks about having a close cousin that completed suicide "a long time ago") Plan Vital Signs Date Time Temp Pulse Resp B/P (MAP) Pulse Ox O2 Delivery O2 Flow Rate FiO2 03/02/18 08:50 97.8 99 14 115/71 (86) 93 Room Air 97.8 Allergies Coded Allergies Type Severity Reaction Last Updated Verified aspirin Allergy Unknown 02/22/18 Yes celecoxib Allergy Unknown 02/22/18 Yes codeine Allergy Unknown 02/22/18 Yes cyclobenzaprine Allergy Unknown 02/22/18 Yes pregabalin Allergy Unknown 02/22/18 Yes zolpidem Allergy Unknown 02/22/18 Yes Intake and Output 03/02/18 07:00 Intake Total 772 ml Balance 772 ml Intake Oral 772 ml # Voids 2 THE PATIENT WAS SEEN BY GAURI ROTHMAN VIA TELEMEDICINE EQUIPMENT (SUPPORTED BY [facility]) ALONG WITH THE TREATMENT TEAM. SHE REPORTS BEING DEPRESSED AND ANXIOUS. SHE DENIES SI/HI. SHE IS HAVNG HALLUCINATIONS RELATED TO HER CHILDREN BEING PRESENT ON THE UNIT. APPETITE AND ENERGY ARE LOW. SHE IS SLEEPING A GOOD AMOUNT OF TIME BUT REPORTS IT IS NOT GOOD SLEEP. SHE IS HAVING BEHAVIORS RELATED TO TAKING HER MEDICATIONS AND WILL REFUSE UNTIL THE LAST MINUTE. ASSESSMENT: MAJOR DEPRESSIVE DISORDER WITH PSYCHOTIC FEATURES PLAN: 1. CONTINUE BEHAVIORAL HEALTH MANAGEMENT 2. CONTINUE CURRENT MEDICATIONS PRESCRIBED. STAFF AGREEABLE WITH PLAN 3. ALL PATIENT QUESTIONS ANSWERED RELATED TO MEDICATIONS, PLAN OF CARE, AND EXPECTED OUTCOMES. 4. SAFETY PLAN DISCUSSED. GAURI ROTHMAN NP Mar 02, 2018 10:14
[2018-03-02 19:48] VITALS: BP 136/95
[2018-03-02] MEDS: SEROQUEL PO SCH (20:49)
[2018-03-03] MEDS: SYNTHROID PO SCH (07:11)
--- NOTE | 2018-03-03 07:36 | NUR ---
PIRP P- ALTERED THOUGHT PROCESS I-PROVIDE MEDICATION ORDERED,Q 15 MIN. MONITORING,PROVIDE SAFE AND SUPPORTIVE ENVIRONMENT. R- PT. ORIENTED TIMES THREE, DID NOT ANSWER ASSESSMENT QUESTIONS. QUIET. REFUSED TO ATTEND GROUP AND SAT ON HER BED DURING GROUP. TOOK MEDICATION ORDERED. DID NOT INITIATE INTERACTION. RESTED IN BED WITH EYES CLOSED. P- WILL CONTINUE WITH CURRENT TX. PLAN.
[2018-03-03 08:30] VITALS: BP 103/74
[2018-03-03] MEDS: CYMBALTA PO SCH (08:41)
[2018-03-03] MEDS: HALDOL PO SCH ×2 (08:41→21:15)
[2018-03-03] MEDS: BUSPAR PO SCH ×2 (08:41→21:15)
--- NOTE | 2018-03-03 10:57 | PRM.PN ---
Mood: DEPRESSION RATED WORSE THAN ON ADMISSION, REPORTS BEING CONFUSED. Sleep: REPORTS DIFFICULTY WITH FALLING ASLEEPING AND STAYING ASLEEP. Appetite: LOW Suidical thoughts: DENIES Homicidal thoughts: DENIES Recent stressors: INCREASED MENTAL ILLNESS Family support: GOOD Aggressive Behavior: NONE Ability to Perform ADL'sc: GOOD Psychotic sympstoms: SHE FEELS LIKE SOMEONE HAS TRIED TO TURN HER AROUND. AH/ VH PRESENTS Manic Symptoms: DENIES Living situation: WITH SPOUSE Illicit Drug usec: NONE Alcoholo use: NONE Tobacco use: NONE Family,PT,Surgical,&Current HX: (1) Major depressive disorder with psychotic features Anxity Symptoms: REPORTS BEING ANXIOUS ALL DAY Anger/Irritablility: NONE NOTED Muscle Strength & Tone: WNL Gait & Station: WNL Appearance: Well groomed/hygience, Appears younger, Overweight Attitude & Behaviour: Cooperative/Pleasant, Good eye contact Mood & Affect: Full Orientation: Disoriented to situation Attention/Concentration: Fair concentration Speech: Reg rate/vol/rhyth/prosod Judgement/Insight: Fair judgement, Poor insight Thought Process: Loose Language: [place] Citizen Thought content/Abnormal/Psych: A/V [place] (REPORTS SEEING AND HEARING HER CHILDREN) Fund of Knowledge: Other (LIMITED) Associations: KATIE Memory (recent and remote): Recent memory repaired, Remote memory repaired Constitutional: Fatigue, Insomnia Neurological: None Psychiatric: Depressed, Anxious, Psychosis [place] I: MDD, RECURRENT WITH PSYCHOTIC FEATURES [place] II: BORDERLINE PERSONALITY DISORDER [place] III: SEE MEDICAL CHART/PMH [place] IV: SAFETY, INCREASED MENTAL ILLNESS [place] V: 35 Assessment/Plan Assessment/Plan Patient History: FHx: depression G8 SISTER FHx: suicide Cousin, Onset:Unknown (The patient talks about having a close cousin that completed suicide "a long time ago") Plan Intake and Output 03/03/18 07:00 Intake Total 50 ml Balance 50 ml Intake Oral 50 ml Vital Signs Date Time Temp Pulse Resp B/P (MAP) Pulse Ox O2 Delivery O2 Flow Rate FiO2 03/03/18 08:30 98.8 107 18 103/74 (84) 98 Room Air 98.8 Allergies Coded Allergies Type Severity Reaction Last Updated Verified aspirin Allergy Unknown 02/22/18 Yes celecoxib Allergy Unknown 02/22/18 Yes codeine Allergy Unknown 02/22/18 Yes cyclobenzaprine Allergy Unknown 02/22/18 Yes pregabalin Allergy Unknown 02/22/18 Yes zolpidem Allergy Unknown 02/22/18 Yes THE PATIENT WAS SEEN BY GAURI ROTHMAN VIA TELEMEDICINE EQUIPMENT (SUPPORTED BY [facility]) ALONG WITH THE TREATMENT TEAM. SHE HAS AN IMPROVED AFFECT TODAY. SHE IS MORE COOPERATIVE AND HAS BEEN PARTICIPATING ON THE UNIT. SHE REPORTS BEING CONFUSED ABOUT SEVERAL THINGS BUT IS UNABLE TO IDENTIFY ONE THING. APPETITE IS LOW, ENERGY IS LOW. SHE REPORTS BEING DEPRESSED AND ANXIOUS. SHE DENIES SI/HI. SHE REPORTS CONTINUED AV/VH RELATED TO HER CHILDREN ON THE UNIT. ASSESSMENT: DEPRESSIVE DISORDER WITH PSYCHOTIC FEATURES, BORDERLINE PERSONALITY DISORDER. PLAN: 1. CONTINUE BEHAVIORAL HEALTH MANAGEMENT 2. CONTINUE CURRENT MEDICATIONS PRESCRIBED. STAFF AGREEABLE WITH PLAN 3. ALL PATIENT QUESTIONS ANSWERED RELATED TO MEDICATIONS, PLAN OF CARE, AND EXPECTED OUTCOMES. 16MINUTES SPENT IN INSIGHT THERAPY AND BEHAVIOR MODIFICATION. 4. SAFETY PLAN DISCUSSED. GAURI ROTHMAN NP Mar 03, 2018 10:57
--- NOTE | 2018-03-03 12:25 | NUR ---
Communication Note: Patient's daughter called about concerns of medication Nexium, Uloric, Vitamin D3 and Enalapri Addendum: 03/03/18 at 1251 by Elsie Medellin RN - [facility] continued: Enalapril not being continued. Dr. Laughlin made aware. Orders received BMP when resulted will decide if Enalapril will be continued. Nexium, Vitamin D3 ordered. Uloric is unavailable.
[2018-03-03] MEDS: VITAMIN D PO SCH (12:32)
[2018-03-03 12:58] LABS: CALCIUM 9.7 mg/dL (8.4-10.5); CARBON DIOXIDE 22.3 mmol/L (20.0-32)
--- NOTE | 2018-03-03 16:00 | NUR ---
PIRP: P: ALTERATION IN MOOD. ALTERED THOUGHT PROCESS I: Provide medications as ordered by physician. Encourage attendance and participation of all groups. Encourage attendance and participation of all groups. Allow patient to voice feelings and concerns. R: Patient is social and appropriate and has been smiling and participating in groups. She is drinking better and is eating some. She has taken all meds and has participated in groups. P: Continue current plan of care.
--- NOTE | 2018-03-03 16:59 | NUR ---
GMAS SCORE : FINDINGS INDICATE SEVERE DEPRESSION. Addendum: 03/06/18 at 1735 by Bebe Blank LMSW SW Amended: Links added.
--- NOTE | 2018-03-03 17:03 | NUR ---
SYMPTOMATOLOGY: PT WAS INITIAL BROUGHT HER VOLUNTARILY FOR MEDIATION MANAGEMENT. PT WAS LIVING HOME WITH HER AND HAD A GREAT FAMILY SUPPORT SYSTEM IN PLACE. PT WAS SEEING DR. ERICKSON ON AN OUTPATIENT BASES AND VOICED DEPRESSION, SI, AND THE NEED FOR MEDIATION MANAGEMENT AND VOLUNTARILY ADMITTED INTO THE U. WHILE ON THE U PT VOICED SI AND BECAME AND DANGER TO HERSELF AND WAS INVOLUNTARILY COMMITTED INTO THE U. UPON DISCHARGE GOAL IS TO RETURN BACK HOME WITH HER AND FOLLOW UP WITH DR. ERICKSON ON AN OUTPATIENT BASES. SW TO CONTINUE TO FOLLOW AND ASSIST WITH DISCHARGE PLANNING. Addendum: 03/06/18 at 1735 by Bebe LIANG Amended: Links added.
--- NOTE | 2018-03-03 17:09 | NUR ---
MMSE SCORE 21: FINDINGS SHOW MILD IMPAIRMENT. Addendum: 03/06/18 at 1710 by Bebe Blank LMSW SW Amended: Links added.
[2018-03-03] MEDS: SEROQUEL PO SCH (21:15)
[2018-03-04 01:11] VITALS: BP 152/95
--- NOTE | 2018-03-04 04:26 | NUR ---
PIRP- P- ALTERATION IN THOUGHT PROCESS AND ALTERED MOOD. I- PROVIDE MEDICATION ORDERED, Q1 15 MIN. MONITORING,PROVIDE SAFE AND SUPPORTIVE ENVIRONMENT AND PROVIDE 1:1 INTERVENTION ALLOWING PT. TO EXPRESS THOUGHTS AND FEELINGS. R- PT. WAS ORIENTED TIMES THREE. DECLINED TO ANSWER ANY OTHER ASSESSMENT QUESTIONS. DECLINED TO ATTEND GROUP OR EAT A SNACK. TOOK MEDICATION ORDERED. PT. STOOD IN THE DOORWAY OF HER ROOM UNTIL SHE WENT TO BED. QUIET AND DID NOT INITIATE INTERACTION. FLAT AFFECT. RESTING IN BED WITH EYES CLOSED AT THIS TIME. P- WILL CONTINUE WITH CURRENT TX. PLAN.
[2018-03-04] MEDS: SYNTHROID PO SCH (05:55)
[2018-03-04 08:19] VITALS: BP 165/97
--- NOTE | 2018-03-04 09:09 | NUR ---
Telemed Pt was seen by Isatu Mejia, DAPHNEY, ULTRASOUND TECHNOLOGIST. No new orders received @ this time.
--- NOTE | 2018-03-04 09:17 | PRM.PN ---
Mood: VAGUE, NOT ANSWERING DIRECTLY. Sleep: SLEPT 7.5 HOURS, REPORTS BEING RESTLESS Appetite: LOW Suidical thoughts: DENIES Homicidal thoughts: DENIES Recent stressors: INCREASED MENTAL ILLNESS Family support: GOOD Aggressive Behavior: NONE NOTED Ability to Perform ADL'sc: FAIR Psychotic sympstoms: "LOTS OF VISIONS" "SEEING EVERYTHING THAT WOULD TAKE ME HOME" Manic Symptoms: INSOMNIA Living situation: WITH SPOUSE Illicit Drug usec: NONE Alcoholo use: NONE Tobacco use: NONE Family,PT,Surgical,&Current HX: (1) Major depressive disorder with psychotic features Anxity Symptoms: "PROBABLY" WHEN ASKED ABOUTPANIC ATTACKS. REPORTS SOME SHAKINESS Anger/Irritablility: NONE NOTED Muscle Strength & Tone: WNL Gait & Station: WNL Appearance: Appears younger, Overweight Attitude & Behaviour: Cooperative/Pleasant, Good eye contact Mood & Affect: Euthymic/appr/congruent Orientation: Fully oriented per interv Attention/Concentration: Good attention, Poor concentration Speech: Reg rate/vol/rhyth/prosod Judgement/Insight: Fair judgement, Fair insight Thought Process: Linear/goal directed Language: Slovak Thought content/Abnormal/Psych: A/V [place] (VAGUE VISIONS NOTED) Fund of Knowledge: Other (LIMITED) Associations: KATIE Memory (recent and remote): Recent memory repaired, Remote memory repaired Constitutional: None Neurological: None Psychiatric: Depressed, Anxious, Psychosis [place] I: MDD, RECURRENT, SEVERE WITH PSYCHOTIC FEATURES [place] II: BORDERLINE PERSONALITY [place] III: SEE MEDICL CHART/PMH [place] IV: INCREASED MENTAL ILLNESS [place] V: 40 Assessment/Plan Assessment/Plan Patient History: FHx: depression G8 SISTER FHx: suicide Cousin, Onset:Unknown (The patient talks about having a close cousin that completed suicide "a long time ago") Plan Vital Signs Date Time Temp Pulse Resp B/P (MAP) Pulse Ox O2 Delivery O2 Flow Rate FiO2 03/04/18 08:19 98.0 123 18 165/97 (119) 94 Room Air 98.0 Allergies Coded Allergies Type Severity Reaction Last Updated Verified aspirin Allergy Unknown 02/22/18 Yes celecoxib Allergy Unknown 02/22/18 Yes codeine Allergy Unknown 02/22/18 Yes cyclobenzaprine Allergy Unknown 02/22/18 Yes pregabalin Allergy Unknown 02/22/18 Yes zolpidem Allergy Unknown 9/5/18 Yes Intake and Output 03/04/18 07:00 Intake Total 660 ml Balance 660 ml Intake Oral 660 ml # Voids 4 THE PATIENT WAS SEEN BY GAURI ROTHMAN VIA TELEMEDICINE EQUIPMENT (SUPPORTED BY [facility]) ALONG WITH THE TREATMENT TEAM. SHE REPORTS CONTINUES DEPRESSION AND ANXIETY. SHE SHE IS TAKING HER MEDICATIONS PRESCRIBED. WE SPOKE EXTENSIVELY ABOUT MEDICATION CHANGES. WE WILL TALK MORE ABOUT IT TOMORROW. SHE REPORTS DECREASED APPETITE AND ENERGY. SHE IS TOLERATING HER MEDICATIONS WELL. SHE DENIES SI/HI/AV. SHE REPORTS SEEING VISIONS OF THINGS THAT WOULD TAKE HER HOME. ASSESSMENT: MAJOR DEPRESSIVE DISORDER, SEVERE, RECURRENT WITH PSYCHOTIC FEATURES , BORDERLINE PERSONALITY. PLAN: 1. CONTINUE BEHAVIORAL HEALTH MANAGEMENT. 2. CONTINUE CURRENT MEDICATIONS PRESCRIBED. STAFF AGREEABLE WITH PLAN 3. ALL PATIENT QUESTIONS ANSWERED RELATED TO MEDICATIONS, PLAN OF CARE, AND EXPECTED OUTCOMES. 4. SAFETY PLAN DISCUSSED. GAURI ROTHMAN NP Mar 04, 2018 09:17
[2018-03-04] MEDS: VITAMIN D PO SCH (09:37)
[2018-03-04] MEDS: CYMBALTA PO SCH (09:37)
[2018-03-04] MEDS: HALDOL PO SCH ×2 (09:37→20:05)
[2018-03-04] MEDS: BUSPAR PO SCH ×2 (09:37→20:05)
[2018-03-04] MEDS: VASOTEC PO SCH (13:58)
--- NOTE | 2018-03-04 17:57 | NUR ---
PIRP P: Alteration in mood, altered thought process, withdrawn I: Monitor for changes in usual behavior, q15 min monitoring, redirect with verbalization, give clear and simple instructions, give medications as ordered, teach importance of adequate nutrition, provide task-oriented activities, provide safe and supportive environment, assess for depression and anxiety, assess for psychotic symptoms, assist with differentiating between internal and external reality, provide 1:1 to encourage expression of feelings, encourage social interaction R: Pt has had flat affect throughout shift, does not initiate interaction with staff or peers. Has been up OOB and in day room majority of shift, but sits away from others and has not participated in group activities. Verbalizes feelings of depression and anxiety, but is unable to rate. States, "I'm just not functioning very good. I can't remember what I'm supposed to be doing." Denies SI/HI. Reports having visual hallucinations, states, "I see everything that would take me home, to my home in [place]." Pt was asked to elaborate, but was unable to do so. Has been provided with education regarding medication management, was not agreeable to mediation changes suggested by nurse practitioner, stated, "I think that's the problem. Too many meds." Unable to determine if exhibiting delusions, has not exhibited inappropriate behaviors this shift. P: Pt reports she just wants "to get better and go home."
[2018-03-04 19:30] VITALS: BP 106/57
[2018-03-04] MEDS: SEROQUEL PO SCH (20:05)
[2018-03-05] MEDS: SYNTHROID PO SCH (05:53)
--- NOTE | 2018-03-05 06:03 | NUR ---
PIRP: P: ALTERATION MOOD, ALTERATION IN THOUGHT PROCESS I: PROVIDE SAFE AND SUPPORTIVE ENVIRONMENT, MONITOR FOR SAFETY Q 15 MINUTES, PROVIDE MEDS ORDERED, ENCOURAGE DAILY GROUPS, ATTENDANCE AND PARTICIPATION I; pt. has safe and supportive environment provided, pt. is monitored q 15 minutes for safety, pt. is attending groups and participating. pt. is alert and oriented x 3. pt. rates depression a 8, and anxiety an 8, pt. denies any sucidial ideation. pt. has been cooperative, calm and pleasant. p: continue current tx plan.
[2018-03-05 07:30] VITALS: BP 109/50
[2018-03-05] MEDS: VASOTEC PO SCH (09:44)
[2018-03-05] MEDS: BUSPAR PO SCH ×2 (09:45→21:06)
[2018-03-05] MEDS: HALDOL PO SCH ×3 (09:45→21:05)
[2018-03-05] MEDS: CYMBALTA PO SCH (09:45)
[2018-03-05] MEDS: VITAMIN D PO SCH (09:45)
--- NOTE | 2018-03-05 09:52 | NUR ---
Telemed Pt was seen by Isatu Mejia DNP, COUNSELING PROGRAM LEADER via telemed. Received orders to decrease scheduled Seroquel and increase scheduled Haldol. Pt agreeable to plan @ this time.
--- NOTE | 2018-03-05 10:00 | PRM.PN ---
Mood: DEPRESSION ABOUT THE SAME Sleep: SLEPT 8.5 HOURS, REPORTS BEING RESTLESS Appetite: IMPROVING Suidical thoughts: DENIES Homicidal thoughts: DENIES Recent stressors: INCREASED MENTAL ILLNESS Family support: GOOD Aggressive Behavior: NONE NOTED Ability to Perform ADL'sc: GOOD Psychotic sympstoms: "SOMETIME" NOT ANY LESS THAN PREVIOUSLY REPORTED. Manic Symptoms: NONE NOTED Living situation: WITH SPOUSE Illicit Drug usec: NONE Alcoholo use: NONE Tobacco use: NONE Family,PT,Surgical,&Current HX: (1) Major depressive disorder with psychotic features Anxity Symptoms: NOTED TO BE THE SAME Anger/Irritablility: DENIES Muscle Strength & Tone: WNL Gait & Station: WNL Appearance: Well groomed/hygience, Appears younger, Overweight Attitude & Behaviour: Cooperative/Pleasant, Good eye contact Mood & Affect: Flat (WITH SOME IMPROVEMENT) Orientation: Fully oriented per interv Attention/Concentration: Good attention, Good concentration Speech: Reg rate/vol/rhyth/prosod Judgement/Insight: Fair judgement, Fair insight Thought Process: Linear/goal directed Language: Macedonian Thought content/Abnormal/Psych: A/V [place] Fund of Knowledge: Other (LIMITED) Associations: KATIE Memory (recent and remote): Recent memory repaired Constitutional: None Neurological: None Psychiatric: Depressed, Anxious, Psychosis [place] I: MAJOR DEPRESSIVE DISORDER, RECURRENT, PSYCHOTIC FEATURES [place] II: BORDERLINE PERSONALITY DISORDER [place] III: SEE MEDICAL CHART/PMH [place] IV: MENTAL ILLNESS [place] V: 40 Assessment/Plan Assessment/Plan Patient History: FHx: depression G8 SISTER FHx: suicide Cousin, Onset:Unknown (The patient talks about having a close cousin that completed suicide "a long time ago") Plan Vital Signs Date Time Temp Pulse Resp B/P (MAP) Pulse Ox O2 Delivery O2 Flow Rate FiO2 03/05/18 09:44 109/50 03/05/18 07:30 98.3 90 16 93 Room Air 98.3 Allergies Coded Allergies Type Severity Reaction Last Updated Verified aspirin Allergy Unknown 02/22/18 Yes celecoxib Allergy Unknown 02/22/18 Yes codeine Allergy Unknown 02/22/18 Yes cyclobenzaprine Allergy Unknown 02/22/18 Yes pregabalin Allergy Unknown 02/22/18 Yes zolpidem Allergy Unknown 02/22/18 Yes Intake and Output 03/05/18 07:00 Intake Total 1300 ml Balance 1300 ml Intake Oral 1300 ml # Voids 1 # Bowel Movements 1 THE PATIENT WAS SEEN BY GAURI ROTHMAN VIA TELEMEDICINE EQUIPMENT (SUPPORTED BY [facility]) ALONG WITH THE TREATMENT TEAM. SHE CONTINUES TO REPORTS DEPRESSION, ANXIETY, AND PROBLEMS WIH AV/VH OF HER CHILDREN. SHE HAS A BRIGHTER AFFECT. DENIES SI/HI. SHE IS COOPERATVE AND TAKING HER MEDICATIONS. SHE REPORTS SOME JERKING IN HER LEGS WHEN ASKED ABOUT IT AT NIGHT. SHE HAS NO OTHER COMPLAINTS. SHE IS STILL SOMEWHAT VAGUE WITH HER ANSWERS BUT SEEMS TO BE MORE FORTHCOMING. ASSESSMENT: MAJOR DEPRESSIVE DISORDER, RECURRENT WITH PSYCHIATRIC FEATURES; BORDERLINE PERSONALITY DISORDER PLAN: 1. CONTINUE BEHAVIORAL HEALTH MANAGEMENT. 2. DECREASE QUETIAPINE TO 200MG PO AT BEDTIME. INCREASE HALDOL TO 5MG 1 BID. CONTINUE CURRENT MEDICATIONS PRESCRIBED. STAFF AGREEABLE WITH PLAN 3. ALL PATIENT QUESTIONS ANSWERED RELATED TO MEDICATIONS, PLAN OF CARE, AND EXPECTED OUTCOMES. 4. SAFETY PLAN DISCUSSED. GAURI ROTHMAN NP Mar 05, 2018 10:00
[2018-03-05] MEDS ORDERED: HALDOL PO STA (11:10)
--- NOTE | 2018-03-05 11:16 | NUR ---
HALDOL HALDOL 2.5MG PO GIVEN TO MAKE THE 5MG DOSE THAT IS THE NEW ORDER.
[2018-03-05] MEDS ORDERED: HALDOL PO PRN (11:17)
--- NOTE | 2018-03-05 18:40 | NUR ---
PIRP P: Alteration in mood I: Monitor for changes in usual behavior, provide 1:1 to encourage expression of feelings, provide task-oriented activities, q15 min monitoring, assess reasons for depression and anxiety, teach coping skills r/t confusion, assess for psychotic symptoms, re-orient to surroundings and reality as needed, encourage intake of PO food and fluid R: Pt has had bright affect throughout shift. Has not participated in group activities, but does interact appropriately when approached. Unable to rate depression and anxiety, states, "It's pretty bad." Has been cooperative with ADLs, takes medications as ordered. P: Scheduled seroquel decreased and haldol increased.
[2018-03-05 20:03] VITALS: BP 115/68
[2018-03-05] MEDS: SEROQUEL PO SCH (21:05)
--- NOTE | 2018-03-06 00:48 | NUR ---
PIRP- P-ALTERATION IN MOOD I-PROVIDE SAFE AND SUPPORTIVE ENVIRONMENT,Q 15 MIN. MONITORING AND PROVIDE MEDICATION ORDERED. R- PT. ORIENTED TIMES THREE. RATED HER DEPRESSION 10 AND ANXIETY 2 ON 0-10 SCALE. PT. DENIED SI. SMILED AND ATTENDED GROUP. DID NOT INITIATE INTERACTION BUT RESPONDED TO APPROACH.TOOK MEDICATION ORDERED. REFUSED SNACKS. RESTING IN BED AT THIS TIME WITH EYES CLOSED. P- WILL CONTINUE WITH CURRENT TX. PLAN.
[2018-03-06] MEDS: SYNTHROID PO SCH (06:29)
[2018-03-06 08:18] VITALS: BP 108/55
[2018-03-06] MEDS: HALDOL PO SCH ×2 (09:16→20:36)
[2018-03-06] MEDS: CYMBALTA PO SCH (09:16)
[2018-03-06] MEDS: BUSPAR PO SCH ×2 (09:16→20:36)
[2018-03-06] MEDS: VASOTEC PO SCH (09:17)
[2018-03-06] MEDS: VITAMIN D PO SCH (09:18)
[2018-03-06] MEDS: PROTONIX PO PRN (09:18)
--- NOTE | 2018-03-06 10:16 | PRM.PN ---
Mood: REPORTS CONTINUED DEPRESSION Sleep: SLEPT 8.5 HOURS Appetite: LOW Suidical thoughts: DENIES Homicidal thoughts: DENIES Recent stressors: INCREASED MENTAL ILLNESS Family support: GOOD Aggressive Behavior: NONE NOTED Ability to Perform ADL'sc: GOOD Psychotic sympstoms: "THEY ARE PROBABLY STILL THERE" Manic Symptoms: NONE NOTED Living situation: WITH SPOUSE Illicit Drug usec: NONE Alcoholo use: NONE Tobacco use: NONE Family,PT,Surgical,&Current HX: (1) Major depressive disorder with psychotic features Anxity Symptoms: HAVING SOME ANXIETY, PANIC ATTACKS-"I WOULD SAY YES" REPORTS FEELING SCARED Anger/Irritablility: "NOT INTENTIONALLY" Muscle Strength & Tone: WNL Gait & Station: WNL Appearance: Well groomed/hygience, Casual attire, Appears age stated Attitude & Behaviour: Cooperative/Pleasant, Good eye contact Mood & Affect: Flat Orientation: Fully oriented per interv Attention/Concentration: Good attention, Good concentration Speech: Reg rate/vol/rhyth/prosod Judgement/Insight: Fair judgement, Fair insight Thought Process: Linear/goal directed Language: [place] Thought content/Abnormal/Psych: A/V [place] Fund of Knowledge: Other (LIMITED) Associations: KATIE Memory (recent and remote): Recent memory repaired, Remote memory repaired Constitutional: None Neurological: None Psychiatric: Depressed, Anxious [place] I: MDD, RECURRENT, SEVERE WITH PSYHOTIC FEATURES [place] II: DEFERRED [place] III: SEE MEDICAL CHART/PMH [place] IV: HOUSING/SAFETY/ [place] V: 40 Assessment/Plan Assessment/Plan Patient History: FHx: depression G8 SISTER FHx: suicide Cousin, Onset:Unknown (The patient talks about having a close cousin that completed suicide "a long time ago") Plan Vital Signs Date Time Temp Pulse Resp B/P (MAP) Pulse Ox O2 Delivery O2 Flow Rate FiO2 03/06/18 09:17 108/55 03/06/18 08:18 98.2 95 18 90 Room Air 98.2 Allergies Coded Allergies Type Severity Reaction Last Updated Verified aspirin Allergy Unknown 02/22/18 Yes celecoxib Allergy Unknown 02/22/18 Yes codeine Allergy Unknown 02/22/18 Yes cyclobenzaprine Allergy Unknown 02/22/18 Yes pregabalin Allergy Unknown 02/22/18 Yes zolpidem Allergy Unknown 02/22/18 Yes Intake and Output 03/06/18 07:00 Intake Total 1516 ml Balance 1516 ml Intake Oral 1516 ml # Voids 2 THE PATIENT WAS SEEN BY GAURI ROTHMAN VIA TELEMEDICINE EQUIPMENT (SUPPORTED BY [facility]) ALONG WITH THE TREATMENT TEAM. SHE REPORTS LOW ENERGY. SHE HAS A LOW APPETITE. SHE DENIES SI/HI. SHE REPORTS AV/VH OF HER FAMILY, BUT THE REPORT IS VERY VAUGE IS MOST OF HER REPORTS. SHE REPORTS SLEEPING SOMEWHAT BETTER LAST NIGHT. I SPOKE AT LENGTH WITH HER DAUGHETER ABOUT THE CHANGES AND SHE AGREES WITH THE PLAN OF CARE. SHE HAS NOTICED AN IMPROVEMENT IN HER MOOD AND AFFECT. SHE DID NOT SOME RESTLESS LEG TYPE SYMPTOMS WITH HER MOTHER. ASSESSMENT: DEPRESSIVE DISORDER, SEVERE, RECURRENT, WITH PSYCHOTIC FEATURES PLAN: 1. CONTINUE BEHAVIORAL HEALTH MANAGEMENT 2. CONTINUE CURRENT MEDICATIONS PRESCRIBED. STAFF AGREEABLE WITH PLAN 3. ALL PATIENT QUESTIONS ANSWERED RELATED TO MEDICATIONS, PLAN OF CARE, AND EXPECTED OUTCOMES. 16 MINUTES SPENT IN SUPPORTIVE THERAPY AND BEHAVIOR MODIFICATION. 4. SAFETY PLAN DISCUSSED. GAURI ROTHMAN NP Mar 06, 2018 10:16
--- NOTE | 2018-03-06 14:33 | NUR ---
Co-Signature For MT Assessment I, GASTON Paredes am co-signing Music Therapy Activities Assessment with completion of this attached note. Signed: 03/06/18 at 1433 by GASTON Paredes OT Addendum: 03/06/18 at 1433 by GASTON Paredes OT Amended: Links added.
--- NOTE | 2018-03-06 17:19 | NUR ---
ASH P: Alteration in mood I: Monitor for changes in usual behavior, provide 1:1 to encourage expression of feelings, provide task-oriented activities, q15 min monitoring, assess reasons for depression and anxiety, teach coping skills r/t confusion, assess for psychotic symptoms, re-orient to surroundings and reality as needed, encourage intake of PO food and fluid R: Pt states her depression has not changed that " It's the same." States that she is confused and " I probably see people and hear voices that aren't there." Dr. Mejia teleconferenced family explaining medication changes, and family verbalizes understanding and agrees with Dr. Mejia's decisions. P: Continue with medication regimen, and continue to encourage pt to participate in groups.
[2018-03-06 19:20] VITALS: BP 124/74
[2018-03-06] MEDS: SEROQUEL PO SCH (20:36)
--- NOTE | 2018-03-07 05:37 | NUR ---
-PIRP P: Alteration in mood I: Monitor for changes in usual behavior, provide 1:1 to encourage expression of feelings, provide task-oriented activities, q15 min monitoring, assess reasons for depression and anxiety, teach coping skills r/t confusion, assess for psychotic symptoms, re-orient to surroundings and reality as needed, encourage intake of PO food and fluid R: The patient has remained seclusive to self in room. She is oriented x4 but reports feeling confused. She does not elaborate. The patient states that "nothing has changed" and "I feel the same". She reports depression 8/10 and denies suicidal ideation. P: Continue with medication regimen, and continue to encourage pt to participate in groups.
[2018-03-07] MEDS: SYNTHROID PO SCH (05:44)
[2018-03-07] MEDS: VASOTEC PO SCH (08:14)
[2018-03-07] MEDS: CYMBALTA PO SCH (08:16)
[2018-03-07] MEDS: VITAMIN D PO SCH (08:16)
[2018-03-07] MEDS: BUSPAR PO SCH ×2 (08:16→20:18)
[2018-03-07] MEDS: HALDOL PO SCH ×2 (08:16→20:17)
[2018-03-07 08:17] VITALS: BP 108/60
--- NOTE | 2018-03-07 09:45 | PRM.PN ---
Mood: DEPRESSION- "PROBABLY WORSE" Sleep: SLEPT 8.75 HOURS " I THINK I SLEPT BETTER" Appetite: LOW Suidical thoughts: NONE Homicidal thoughts: NONE Recent stressors: INCREASED MENTAL ILLNESS Family support: GOOD Aggressive Behavior: NONE NOTED Ability to Perform ADL'sc: GOOD Psychotic sympstoms: "I THINK I HEAR A LOT OF THINGS" Manic Symptoms: NONE NOTED Living situation: WITH SPOUSE Illicit Drug usec: NONE Alcoholo use: NONE Tobacco use: NONE Family,PT,Surgical,&Current HX: (1) Major depressive disorder with psychotic features Anxity Symptoms: "PRETTY ANXIOUS" SHE FEELS IT'S WORSE THAN ON ADMISSION Anger/Irritablility: "I DON'T MEAN TO BE" Muscle Strength & Tone: WNL Gait & Station: WNL Appearance: Casual attire, Appears younger, Overweight Attitude & Behaviour: Cooperative/Pleasant, Good eye contact Mood & Affect: Flat Orientation: Fully oriented per interv Attention/Concentration: Good attention, Good concentration Speech: Reg rate/vol/rhyth/prosod Judgement/Insight: Fair judgement, Fair insight Thought Process: Loose Thought content/Abnormal/Psych: A/V [place] (REPORTS HAVING VOICES TELLING WHAT SHE SHOULD DO) Fund of Knowledge: Other (IMPAIRED, VAGUE WITH HER ANSWERS) Associations: KATIE Memory (recent and remote): Recent memory repaired, Remote memory repaired Constitutional: None Neurological: None Psychiatric: Depressed, Anxious, Psychosis [place] I: MAJOR DEPRESSIVE DISORDER, SEVERE WITH PSYCHOTIC FEATURES [place] II: BORDERLINE PERSONALITY [place] III: SEE MEDICAL CHART [place] IV: INCREASED MENTAL ILLNESS [place] V: 40 Assessment/Plan Assessment/Plan Patient History: FHx: depression G8 SISTER FHx: suicide Cousin, Onset:Unknown (The patient talks about having a close cousin that completed suicide "a long time ago") Plan Vital Signs Date Time Temp Pulse Resp B/P (MAP) Pulse Ox O2 Delivery O2 Flow Rate FiO2 03/07/18 08:17 97.6 66 18 108/60 (76) 90 Room Air 97.6 Allergies Coded Allergies Type Severity Reaction Last Updated Verified aspirin Allergy Unknown 02/22/18 Yes celecoxib Allergy Unknown 02/22/18 Yes codeine Allergy Unknown 02/22/18 Yes cyclobenzaprine Allergy Unknown 02/22/18 Yes pregabalin Allergy Unknown 02/22/18 Yes zolpidem Allergy Unknown 02/22/18 Yes Intake and Output 03/07/18 07:00 Intake Total 580 ml Balance 580 ml Intake Oral 580 ml THE PATIENT WAS SEEN BY GAURI ROTHMAN VIA TELEMEDICINE EQUIPMENT ([facility]) ALONG WITH THE TREATMENT TEAM. YESTERDAY AFTERNOON SHE BECAME MORE WITHDRAWN AND DID NOT PARTICIPATE IN GROUP ACTIVITIES. SHE IS STILL VERY VAGUE IN HER ANSWERS. SHE DENIES SI/HI. SHE HAS COMPLAINTS OF AH TELLING HER OF THINGS SHE SHOULD BE DOING. SHE REPORTS LOW APPETITE AND ENERGY. WHEN ASKED ABOUT SIDE EFFECTS SHE REPORTS ALL OF THE ABOVE. SHE REPORTS HAVING A LOT ON HER MIND BUT IS UNABLE TO STATE WHAT SPECIFICALLY. ASSESSMENT: MAJOR DEPRESSIVE DISORDER, SEVERE WITH PSYCHOTIC FEATURES, ANXIETY, BORDERLINE PERSONALITY DISORDER PLAN: 1. CONTINUE BEHAVIORAL HEALTH MANAGEMENT 2. CONTINUE CURRENT MEDICATIONS PRESCRIBED. STAFF AGREEABLE WITH PLAN 3. ALL PATIENT QUESTIONS ANSWERED RELATED TO MEDICATIONS, PLAN OF CARE, AND EXPECTED OUTCOMES. 4. SAFETY PLAN DISCUSSED. GAURI ROTHMAN NP Mar 07, 2018 09:45
--- NOTE | 2018-03-07 15:04 | NUR ---
PIRP: P: alteration in mood
--- NOTE | 2018-03-07 15:10 | NUR ---
PIRP: P: altered thought process. alteration in mood I: Provide medications as ordered by physician. Encourage attendance and participation of all groups. Allow patient to voice feelings and concerns. R: Patient has taken all medications as ordered. She had had lack of motivation and has remained in her room most of the day. She is oriented x3. Patient has not participated in groups. P: Coantinue current plan of care.
[2018-03-07 19:28] VITALS: BP 131/79
[2018-03-07] MEDS: SEROQUEL PO SCH (20:18)
--- NOTE | 2018-03-08 04:37 | NUR ---
-PIRP P: Alteration in mood I: Monitor for changes in usual behavior, provide 1:1 to encourage expression of feelings, provide task-oriented activities, q15 min monitoring, assess reasons for depression and anxiety, teach coping skills r/t confusion, assess for psychotic symptoms, re-orient to surroundings and reality as needed, encourage intake of PO food and fluid R: The patient has remained in bed for the majority of shift. She had visitation with a daughter and grandaughter. The patient reports "they tell me I look better, but I don't". She went to the dayroom for a snack, only after much prompting from staff. She continues to report depression 01/27. Patient educated on importance of participation of treatment plan and physical activity and voiced understanding. P: Continue with medication regimen, and continue to encourage pt to participate in groups.
[2018-03-08] MEDS: SYNTHROID PO SCH (06:01)
[2018-03-08 07:49] VITALS: BP 125/63
[2018-03-08] MEDS: VASOTEC PO SCH (08:19)
[2018-03-08] MEDS: VITAMIN D PO SCH (08:20)
[2018-03-08] MEDS: BUSPAR PO SCH ×2 (08:20→20:37)
[2018-03-08] MEDS: HALDOL PO SCH ×2 (08:20→20:37)
[2018-03-08] MEDS: CYMBALTA PO SCH (08:20)
--- NOTE | 2018-03-08 08:50 | NUR ---
Tx team Pt was seen by Dr. Yancey via telemed. Received orders to decrease scheduled Seroquel and obtain UA.
--- NOTE | 2018-03-08 08:59 | PRM.PN ---
Mood: UP AND DOWN, REPORTS FEELING DEPRESSED Sleep: SLEEPING WELL AT NIGHT Appetite: NORMAL APPETITE Suidical thoughts: DENIES SI AT THIS TIME Homicidal thoughts: DENIES HI Recent stressors: STRESS OF MENTAL ILLNESS Family support: GOOD FAMILY SUPPORT Aggressive Behavior: NONE REPORTED Ability to Perform ADL'sc: YES Psychotic sympstoms: PARNOIA, VAGUE HALLUCINATIONS Manic Symptoms: NONE REPORTED Living situation: WAS LIVING AT HOME WITH HER Illicit Drug usec: NONE REPORTED Alcoholo use: NONE REPORTED Tobacco use: NONE REPORTED Anxity Symptoms: MODERATE ANXIETY LEVEL Anger/Irritablility: SOME ANGER AND IRRITABILITY Muscle Strength & Tone: WNL Gait & Station: WN Appearance: Well groomed/hygience, Casual attire, Appears age stated, Overweight Attitude & Behaviour: Cooperative/Pleasant, Good eye contact, Psychomotor retardation Mood & Affect: Flat, [place], Depressed Orientation: Fully oriented per interv Attention/Concentration: Fair attention, Fair concentration Speech: Reg rate/vol/rhyth/prosod Judgement/Insight: Fair judgement, Fair insight Thought Process: Linear/goal directed Language: Urdu Thought content/Abnormal/Psych: A/V [place], Delusions Fund of Knowledge: WNL Associations: WNL/Normal Associations Memory (recent and remote): Gross int/not form assess Constitutional: None Neurological: None Psychiatric: Depressed, Anxious, Psychosis [place] I: MDD WITH PSYCHOSIS, LUCAS [place] II: DEFERRED [place] III: REFER TO PMH/MEDICAL CHART [place] IV: STRESS OF MENTAL ILLNESS [place] V: GAF=30 Assessment/Plan Assessment/Plan Assessment/Plan Vital Signs Date Time Temp Pulse Resp B/P (MAP) Pulse Ox O2 Delivery O2 Flow Rate FiO2 03/08/18 08:19 125/63 03/08/18 07:49 98.5 88 16 96 Room Air 98.5 Allergies Coded Allergies aspirin (Verified Allergy, Unknown, 02/22/18) celecoxib (Verified Allergy, Unknown, 02/22/18) codeine (Verified Allergy, Unknown, 02/22/18) cyclobenzaprine (Verified Allergy, Unknown, 02/22/18) pregabalin (Verified Allergy, Unknown, 02/22/18) zolpidem (Verified Allergy, Unknown, 02/22/18) I & O 02/23/18 02:24 Thru 03/08/18 07:30 Intake Total 58587 ml Balance 12186 ml THE PATIENT WAS SEEN BY DR. CHARLTON VIA TELEMEDICINE EQUIPMENT ALONG WITH THE TREATMENT TEAM. THE PATIENT SLEPT 8.5 HOURS LAST NIGHT. THE PATIENT HAS BEEN SLEEPING WELL. THE PATIENT HAS AN IMPROVED APPETITE. THE PATIENT EATS 30-50% OF HER MEALS. THE PATIENT'S MOOD IS UP AND DOWN. THE PATIENT LIVES WITH HER IN [place], [place]. THE PATIENT HAS SOCIAL SUPPORT FROM HER CHILDREN. THE PATIENT STRUGGLES WITH MEMORY PROBLEMS AT TIMES. THE PATIENT HAS SHOWN IMPROVEMENT IN HER MOOD. THE PATIENT DENIES SI OR HI. THE PATIENT HAS BEEN ATTENDING GROUPS. THE PATIENT HAS BEEN TAKING HER MEDICATIONS. ASSESSMENT: MAJOR DEPRESSIVE DISORDER WITH PSYCHOTIC FEATURES; GENERALIZED ANXIETY DISORDER; RULE OUT DEMENTIA PLAN: 1) CONTINUE BEHAVIORAL HEALTH MANAGEMENT. 2) DECREASE SEROQUEL TO 100MG PO QHS. CONTINUE OTHER MEDICATIONS AT CURRENT DOSES. SUPPORTIVE THERAPY GIVEN. THE PATIENT DENIES SI OR HI. SAFETY PLANS WERE DISCUSSED. 16 MINUTES SPENT IN SUPPORTIVE THERAPY AND INSIGHT ORIENTED THERAPY. DR. CHARLTON SPOKE WITH HER FAMILY ABOUT THE PATIENT'S PROGRESS. Problems: (1) Major depressive disorder with psychotic features Status: Acute ICD Code: F32.3 - Major depressive disorder, single episode, severe with psychotic features SNOMED: [id number] Patient History: FHx: depression G8 SISTER FHx: suicide Cousin, Onset:Unknown (The patient talks about having a close cousin that completed suicide "a long time ago") JOHANNY CHARLTON IV, MD Mar 08, 2018 08:59
--- NOTE | 2018-03-08 18:18 | NUR ---
PIRP P: Alteration in mood I: Assess reasons for depression and anxiety, encourage social interaction, teach importance of participating in ADLs, teach coping skills r/t anxiety and depression, assess for psychotic symptoms, provide safe and supportive environment, q15 min monitoring, monitor for changes in usual behavior, provide task-oriented activities, give medications as ordered R: Pt has had bright affect throughout shift. Has shown improvement in appetite; reports she can't feed self, but is able to do so. Rates depression @ 10 and anxiety @ 8 on 0-10 scale. States, "I've been better. I can't seem to put everything in perspective." "If I don't complete these tasks, I'm going to ." When asked what tasks she referred to, pt stated, "like feed myself." When asked if hallucinating, pt stated, "probably." Has not exhibited any symptoms indicating seeing, hearing, or feelings things that are not there. Unable to determine if delusional, no SI/HI, or paranoia noted. P: Pt's scheduled seroquel decreased.
[2018-03-08 19:00] VITALS: BP 165/85
[2018-03-08] MEDS ORDERED: HALDOL ONE ×2 (20:13→20:30)
[2018-03-08] MEDS: SEROQUEL PO SCH (20:37)
--- NOTE | 2018-03-09 05:09 | NUR ---
-PIRP P: Alteration in mood I: Assess reasons for depression and anxiety, encourage social interaction, teach importance of participating in ADLs, teach coping skills r/t anxiety and depression, assess for psychotic symptoms, provide safe and supportive environment, q15 min monitoring, monitor for changes in usual behavior, provide task-oriented activities, give medications as ordered R: The patient has remained in bed for the majority of shift. She refused snacks. She rates her depression 10/10 and reports "I just keep thinking about things" but does not elaborate. She does not appear to be responding to internal stimuli. She denies suicidal or homicidal ideation. No behavior issues. P: Continue with treatment plan. Will continue monitor and maintain safety.
[2018-03-09] MEDS: SYNTHROID PO SCH (05:31)
[2018-03-09 07:27] VITALS: BP 125/71
[2018-03-09 08:00] LABS: APPEARANCE,URINE SLIGHTLY HAZY (CLEAR); BILIRUBIN,URINE NEGATIVE (NEGATIVE); UA COLOR YELLOW (YELLOW); UROBILINOGEN,URINE NORMAL (NEGATIVE)
[2018-03-09] MEDS: HALDOL PO SCH ×2 (09:00→20:30)
[2018-03-09] MEDS: VITAMIN D PO SCH (09:00)
[2018-03-09] MEDS: VASOTEC PO SCH (09:00)
[2018-03-09] MEDS: CYMBALTA PO SCH (09:00)
[2018-03-09] MEDS: BUSPAR PO SCH ×2 (09:00→20:30)
--- NOTE | 2018-03-09 10:26 | NUR ---
Telemed Pt was seen by Isatu Mejia, DAPHNEY, IMPORT EXPORT CLERK via telemed. No new orders received @ this time.
--- NOTE | 2018-03-09 10:35 | PRM.PN ---
Mood: "PRETTY LOW" Sleep: SLEPT 8.5 HOURS, FRAGMENTED SLEEP Appetite: IMPROVING, 40% OF ALL MEALS, EATING SNACKS Suidical thoughts: DENIES Homicidal thoughts: DENIES Recent stressors: INCREASED DEPRESSION Family support: GOOD Aggressive Behavior: NONE NOTED Ability to Perform ADL'sc: GOOD Psychotic sympstoms: NONE NOTED Manic Symptoms: DENIES Living situation: WITH SPOUSE Illicit Drug usec: NONE Alcoholo use: NONE Tobacco use: NONE Family,PT,Surgical,&Current HX: (1) Major depressive disorder with psychotic features Anxity Symptoms: REPORTS BEING ANXIOUS, REPORTS OCCASIONAL PANIC ATTACKS Anger/Irritablility: NONE NOTED Muscle Strength & Tone: WNL Gait & Station: WNL Appearance: Well groomed/hygience, Casual attire, Appears younger Attitude & Behaviour: Cooperative/Pleasant, Good eye contact Orientation: Fully oriented per interv Attention/Concentration: Good attention, Good concentration Speech: Reg rate/vol/rhyth/prosod Judgement/Insight: Fair judgement, Fair insight Thought Process: Linear/goal directed Language: Omani Thought content/Abnormal/Psych: None/normal Fund of Knowledge: Other (limited) Associations: KATIE Memory (recent and remote): Recent memory repaired, Remote memory repaired Constitutional: None Neurological: None Psychiatric: Depressed, Anxious [place] I: MDD, SEVERE WITH PSYCHOTIC FEATURES, ANXIETY [place] II: BODERLINE PERSONALITY DISORDER [place] III: SEE PMH/MEDICAL [place] IV: STRESS OF MENTAL ILLNESS [place] V: 40 Assessment/Plan Assessment/Plan Patient History: FHx: depression G8 SISTER FHx: suicide Cousin, Onset:Unknown (The patient talks about having a close cousin that completed suicide "a long time ago") Plan Vital Signs Date Time Temp Pulse Resp B/P (MAP) Pulse Ox O2 Delivery O2 Flow Rate FiO2 03/09/18 09:00 125/71 03/09/18 07:27 98.3 85 18 95 Room Air 98.3 Allergies Coded Allergies Type Severity Reaction Last Updated Verified aspirin Allergy Unknown 02/22/18 Yes celecoxib Allergy Unknown 02/22/18 Yes codeine Allergy Unknown 02/22/18 Yes cyclobenzaprine Allergy Unknown 02/22/18 Yes pregabalin Allergy Unknown 02/22/18 Yes zolpidem Allergy Unknown 02/22/18 Yes Intake and Output 03/09/18 07:00 Intake Total 1124 ml Balance 1124 ml Intake Oral 1124 ml # Voids 2 # Bowel Movements 1 THE PATIENT WAS SEEN BY GAURI ROTHMAN VIA TELEMEDICINE EQUIPMENT (SUPPORTED BY [facility]) ALONG WITH THE TREATMENT TEAM. SHE CONTINUES TO REPORTS DEPRESSION AND ANXIETY ALTHOUGH HER AFFECT IS MUCH BETTER. SHE IS EATING AN SLEEPING SOMEWHAT BETTER. SHE DENIES AV/VH AT THIS TIME AND REPORTS HAVING THOUGHTS OF HER FAMILY AND THINGS THAT SHE NEEDS TO DO IN ORDER TO GET HOME. SHE DENIES SI/HI. SHE IS PARTICIPATING AND REPORTS VAGUE ANSWERS ON SOME QUESTIONS. ASSESSMENT: DEPRESSION WITH PSYCHOTIC FEATURES, BORDERLINE PERSONALITY DISORDER PLAN: 1. CONTINUE BEHAVIORAL HEALTH MANAGEMENT. 2. CONTINUE CURRENT MEDICATIONS PRESCRIBED. STAFF AGREEABLE WITH PLAN 3. ALL PATIENT QUESTIONS ANSWERED RELATED TO MEDICATIONS, PLAN OF CARE, AND EXPECTED OUTCOMES. 4. SAFETY PLAN DISCUSSED. GAURI ROTHMAN NP Mar 09, 2018 10:35
--- NOTE | 2018-03-09 17:34 | NUR ---
PIRP P: Alteration in mood I: Assess reasons for depression and anxiety, monitor for changes in usual behavior, alternate rest/activity, provide safe and supportive environment, provide task-oriented activities, provide 1:1 to encourage expression of feelings, q15 min monitoring, give medications as ordered, provide positive feed-back on appropriate behaviors R: Pt has had pleasant, bright affect throughout shift. Has shown improvement in participation, appetite, and affect. Pt continues to report her depression and anxiety are @ 10 on 0-10 scale. States her mood is "pretty low." Exhibits some delusional thoughts such as believing she is unable to feed self, unable to care for self. No hallucinations noted. Has not exhibited self-harm behaviors or exhibited threatening or combative behaviors. Reports she is anxious to get out of facility. Has participated in group activities, takes medications as ordered, and has initiated interaction with staff and peers. P: Pt reports she would like to go home "as soon as possible."
[2018-03-09 19:52] VITALS: BP 139/79
[2018-03-09] MEDS: SEROQUEL PO SCH (20:30)
--- NOTE | 2018-03-10 03:24 | NUR ---
pirp- P- ALTERATION IN MOOD I- PROVIDE MEDICATION ORDERED,PROVIDE SAFE AND SUPPORTIVE ENVIRONMENT,Q 15 MIN. MONITORING R- PT. WAS ORIENTED TIMES THREE AND RATED DEPRESSION AND ANXIETY 8. ENCOURAGED PT. TO ATTEND GROUP AND EAT A SNACK BUT PT. DECLINED SHE STAYED IN BED. TOOK MEDICATION ORDERED. QUIET BUT RESPONDS TO APPROACH. P- WILL CONTINUE WITH CURRENT TX. PLAN.
[2018-03-10] MEDS: SYNTHROID PO SCH (05:50)
[2018-03-10] MEDS: BUSPAR PO SCH ×2 (08:09→21:13)
[2018-03-10 08:10] VITALS: BP 123/67
[2018-03-10] MEDS: HALDOL PO SCH ×2 (08:11→21:13)
[2018-03-10] MEDS: VITAMIN D PO SCH (08:11)
[2018-03-10] MEDS: CYMBALTA PO SCH (08:11)
[2018-03-10] MEDS: VASOTEC PO SCH (08:11)
[2018-03-10] MEDS: PROTONIX PO PRN (08:11)
--- NOTE | 2018-03-10 11:43 | NUR ---
Telemed Pt was seen by Isatu Mejia, DAPHNEY, BUSINESS INTELLIGENCE MANAGER via telemed. Received orders to decrease scheduled seroquel, see EMAR.
--- NOTE | 2018-03-10 11:51 | PRM.PN ---
Mood: RATED DEPRESSION 01/27. REPORTS FEELING BETTER Sleep: SLEPT 7.25 HOURS LAST NIGHT. Appetite: ABOUT THE SAME, LOW Suidical thoughts: DENIES Homicidal thoughts: DENIES Recent stressors: INCREASE MENTAL ILLNESS Family support: GOOD Aggressive Behavior: NONE NOTED Ability to Perform ADL'sc: GOOD Psychotic sympstoms: DENIES Manic Symptoms: NONE NOTED Living situation: WITH SPOUSE Illicit Drug usec: NONE Alcoholo use: NONE Tobacco use: NONE Anxity Symptoms: REPORTS BEING ANXIOUS BEING TO GO HOME. 01/27. Anger/Irritablility: DENIES Muscle Strength & Tone: WNL Gait & Station: WNL Appearance: Well groomed/hygience, Casual attire, Appears younger Attitude & Behaviour: Cooperative/Pleasant, Good eye contact Mood & Affect: Euthymic/appr/congruent Orientation: Fully oriented per interv Attention/Concentration: Good attention, Good concentration Speech: Reg rate/vol/rhyth/prosod Judgement/Insight: Good judgement, Good insight Thought Process: Linear/goal directed Language: Sami Thought content/Abnormal/Psych: None/normal Fund of Knowledge: WNL Associations: WNL/Normal Associations Memory (recent and remote): Remote memory repaired Constitutional: None Neurological: None Psychiatric: Depressed, Anxious [place] I: DEPRESSIVE DISORDER, SEVERE, PSYCHOTIC FEATURES, ANXIETY [place] II: BORDERLINE PERSONALITY DISORDER [place] III: SEE MEDICLA CHART/PMH [place] IV: INCREASED MENTAL ILLNESS [place] V: 40 Assessment/Plan Assessment/Plan Patient History: FHx: depression G8 SISTER FHx: suicide Cousin, Onset:Unknown (The patient talks about having a close cousin that completed suicide "a long time ago") Plan Vital Signs Date Time Temp Pulse Resp B/P (MAP) Pulse Ox O2 Delivery O2 Flow Rate FiO2 03/10/18 08:11 123/67 03/10/18 08:10 98.5 81 12 90 Room Air 98.5 Allergies Coded Allergies Type Severity Reaction Last Updated Verified aspirin Allergy Unknown 02/22/18 Yes celecoxib Allergy Unknown 02/22/18 Yes codeine Allergy Unknown 02/22/18 Yes cyclobenzaprine Allergy Unknown 02/22/18 Yes pregabalin Allergy Unknown 02/22/18 Yes zolpidem Allergy Unknown 02/22/18 Yes Intake and Output 03/10/18 07:00 Intake Total 1488 ml Balance 1488 ml Intake Oral 1488 ml # Voids 6 # Bowel Movements 1 THE PATIENT WAS SEEN BY GAURI ROTHMAN VIA TELEMEDICINE EQUIPMENT (SUPPORTED BY [facility]) ALONG WITH THE TREATMENT TEAM. SHE HAS A BRIGHTER AFFECT. SHE REPORTS FEELING BETTER TODAY. SHE DID NOT SLEEP WELL LAST NIGHT DUE TO A FELLOW PATIENT HAVING PROBLEMS. APPETITE HAS IMPROVED TO EATING MORE OF HER MEALS, SHE DOES NOT RECOGNIZE THIS. SHE IS COOPERATIVE AND PARTICIPATING. SHE IS TOLERATING HER MEDICATIONS. SHE DENIES SI/HI/AV/VH. ASSESSMENT: MAJOR DEPRESSIVE DISORDER WITH PSYCHOTIC FEATURES, ANXIETY, BORDERLINE PERSONALITY DISORDER. PLAN: 1. CONTINUE BEHAVIORAL HEALTH MANAGEMENT. 2. DECREASE QUETIAPINE TO 50MG 1 PO QHS. CONTINUE ALL OTHER CURRENT MEDICATIONS PRESCRIBED. STAFF AGREEABLE WITH PLAN 3. ALL PATIENT QUESTIONS ANSWERED RELATED TO MEDICATIONS, PLAN OF CARE, AND EXPECTED OUTCOMES. 16 MINUTES SPENT IN SUPPORTIVE THERAPY AND BEHAVIOR MODIFICATION. 4. SAFETY PLAN DISCUSSED. GAURI ROTHMAN NP Mar 10, 2018 11:51
--- NOTE | 2018-03-10 17:48 | NUR ---
PIRP P: Alteration in mood I: Monitor for changes in usual behavior, provide 1:1 to encourage expression of feelings, provide task-oriented activities, q15 min monitoring, assess reasons for depression and anxiety, teach coping skills r/t confusion, assess for psychotic symptoms, re-orient to surroundings and reality as needed, encourage intake of PO food and fluid R: Pt mood has been pleasant today without any behaviors. Medication changes noted, refer to emar. Pt states, " not impressed with meds yet, I'm better, I can tell." Pt laughing and participated in playing cards during group. P: Seroquel decreased, possible dc on tuesday
[2018-03-10 20:17] VITALS: BP 123/67
[2018-03-10] MEDS ORDERED: SEROQUEL PO SCH (21:00)
--- NOTE | 2018-03-11 03:13 | NUR ---
PIRP- P- ALTERATION IN MOOD I-PROVIDE MEDICATION ORDERED,Q 15 MIN. MONITORING,PROVIDE SAFE AND SUPPORTIVE ENVIRONMENT AND PROVIDE 1:1 INTERVENTION ALLOWING PT. TO EXPRESS THOUGHTS AND FEELINGS. R- PT. WAS ORIENTED TIMES THREE. RATED DEPRESSION [address] TONIGHT. ATTENDED GROUP,ATE SNACKS,PARTICIPATED IN EXERCISES AND LED ONE OF THEM. SHE STATED SHE ACCOMPLISHED HER DAILY GOAL TODAY. PLEASANT AFFECT AND SMILED OFTEN. INITIATED INTERACTION. SHE STATED HER DEPRESSION WAS AN EIGHT BECAUSE SHE WANTED TO GO HOME. RESTING IN BED WITH EYES CLOSED AT THIS TIME. P- WILL CONTINUE WITH CURRENT TX. PLAN.
[2018-03-11] MEDS: SYNTHROID PO SCH (06:09)
[2018-03-11 08:06] VITALS: BP 134/75
[2018-03-11] MEDS: VASOTEC PO SCH (08:32)
[2018-03-11] MEDS: PROTONIX PO PRN (08:32)
[2018-03-11] MEDS: VITAMIN D PO SCH (08:32)
[2018-03-11] MEDS: BUSPAR PO SCH ×2 (08:32→20:29)
[2018-03-11] MEDS: CYMBALTA PO SCH (08:32)
[2018-03-11] MEDS ORDERED: HALDOL ONE (08:36)
[2018-03-11] MEDS: HALDOL PO SCH ×2 (08:38→20:29)
--- NOTE | 2018-03-11 15:10 | NUR ---
TELEMEDICINE PT SPOKE WITH DR ROTHMAN. STATES, " I HAVE FELT PRETTY GOOD ALL DAY". DENIES ANY DEPRESSION OR ANXIETY. NO NEW ORDERS AT THIS TIME.
--- NOTE | 2018-03-11 15:15 | PRM.PN ---
Mood: SMILING. "I"VE HAD A PRETTY GOOD DAY" Sleep: SLEPT 8.25 HOURS Appetite: "FAIRLY GOOD" Suidical thoughts: DENIES Homicidal thoughts: DENIES Recent stressors: INCREASED STRESS OF MENTAL ILLNESS Family support: GOOD Aggressive Behavior: NONE NOTED Ability to Perform ADL'sc: GOOD Psychotic sympstoms: NONE Manic Symptoms: NONE Living situation: WITH FAMILY Illicit Drug usec: NONE Alcoholo use: NONE Tobacco use: NONE Family,PT,Surgical,&Current HX: (1) Major depressive disorder with psychotic features Anxity Symptoms: JUST WATCHING THE OTHERS IN THE UNIT Anger/Irritablility: DENIES Muscle Strength & Tone: WNL Gait & Station: WNL Appearance: Well groomed/hygience, Casual attire, Appears younger Attitude & Behaviour: Cooperative/Pleasant, Good eye contact Mood & Affect: Euthymic/appr/congruent Orientation: Fully oriented per interv Attention/Concentration: Good attention, Good concentration Judgement/Insight: Good judgement, Good insight Thought Process: Linear/goal directed Language: Mohawk Thought content/Abnormal/Psych: None/normal Fund of Knowledge: WNL Memory (recent and remote): Gross int/not form assess Constitutional: None Neurological: None Psychiatric: None [place] I: DEPRESSION, ANXIETY, [place] II: BORDERLINE PERSONALITY DISORDER [place] III: SEE MEDICAL CHART/PMH [place] IV: INCREASED MENTAL ILLNESS [place] V: 50 Assessment/Plan Assessment/Plan Patient History: FHx: depression G8 SISTER FHx: suicide Cousin, Onset:Unknown (The patient talks about having a close cousin that completed suicide "a long time ago") Plan Vital Signs Date Time Temp Pulse Resp B/P (MAP) Pulse Ox O2 Delivery O2 Flow Rate FiO2 03/11/18 08:32 134/75 03/11/18 08:06 98.3 92 12 95 Room Air 98.3 Allergies Coded Allergies Type Severity Reaction Last Updated Verified aspirin Allergy Unknown 02/22/18 Yes celecoxib Allergy Unknown 02/22/18 Yes codeine Allergy Unknown 02/22/18 Yes cyclobenzaprine Allergy Unknown 02/22/18 Yes pregabalin Allergy Unknown 02/22/18 Yes zolpidem Allergy Unknown 02/22/18 Yes Intake and Output 03/11/18 07:00 Intake Total 1750 ml Balance 1750 ml Intake Oral 1750 ml # Voids 2 THE PATIENT WAS SEEN BY GAURI ROTHMAN VIA TELEMEDICINE EQUIPMENT (SUPPORTED BY [facility]) ALONG WITH THE TREATMENT TEAM. SHE IS SMILING. SHE REPORTS THAT SHE IS DOING WELL. SHE IS EATING AND SLEEPING WELL. SHE DENIES ANY PROBLEMS WITH HER MEDICATIONS. SHE DENIES SI/H/AV/VH. ASSESSMENT: MAJOR DEPRESSIVE DISORDER, SEVERE WITH PSYCHOTIC FEATURES, ANXIETY, BORDERLINE PERSONALITY DISORDER PLAN: 1. CONTINUE BEHAVIORAL HEALTH MANAGEMENT. PLAN FOR DISCHARGE TUESDAY OR TUESDAY. 2. DISCONTINUE QUETIAPINE. CONTINUE ALL OTHER CURRENT MEDICATIONS PRESCRIBED. STAFF AGREEABLE WITH PLAN 3. ALL PATIENT QUESTIONS ANSWERED RELATED TO MEDICATIONS, PLAN OF CARE, AND EXPECTED OUTCOMES. 4. SAFETY PLAN DISCUSSED. GAURI ROTHMAN NP Mar 11, 2018 15:14
--- NOTE | 2018-03-11 17:25 | NUR ---
PIRP P: Alteration in mood I: Monitor for changes in usual behavior, provide 1:1 to encourage expression of feelings, provide task-oriented activities, q15 min monitoring, assess reasons for depression and anxiety, teach coping skills r/t confusion, assess for psychotic symptoms, re-orient to surroundings and reality as needed, encourage intake of PO food and fluid R: Pt has been happy and laughing today. No new medications made. Continue with plan for dc on tuesday P: Jeffy dc'd , possible dc on tuesday
[2018-03-11 19:40] VITALS: BP 133/77
--- NOTE | 2018-03-12 04:41 | NUR ---
pirp- P- ALTERATION IN MOOD I- PROVIDE MEDICATION ORDERED,PROVIDE SAFE AND SUPPORTIVE ENVIRONMENT,Q 15 MIN. MONITORING AND PROVIDE 1:1 INTERVENTION ALLOWING PT. TO EXPRESS THOUGHTS AND FEELINGS R- PT. ORIENTED TIMES THREE,RATED DEPRESSION AND ANXIETY 0. DENIES SI.ATTENDED GROUP,ATE SNACKS ,INITIATED INTERACTION,SMILED AND EXHIBITED NO INAPPROPRIATE BEHAVIORS. PT. STATED SHE WAS LOOKING FORWARD TO GETTING TO GO HOME SOON. TOOK MEDICATION ORDERED. P- WILL CONTINUE WITH CURRENT TX. PLAN.
[2018-03-12] MEDS: SYNTHROID PO SCH (06:10)
[2018-03-12 08:01] VITALS: BP 131/72
[2018-03-12] MEDS: PROTONIX PO PRN (08:09)
[2018-03-12] MEDS: HALDOL PO SCH (08:09)
[2018-03-12] MEDS: BUSPAR PO SCH (08:10)
[2018-03-12] MEDS: CYMBALTA PO SCH (08:10)
[2018-03-12] MEDS: VITAMIN D PO SCH (08:10)
[2018-03-12] MEDS: VASOTEC PO SCH (08:11)
--- NOTE | 2018-03-12 11:45 | NUR ---
TELEMED PT SPOKE WITH Isatu ROTHMAN DNP. ORDERS GIVEN FOR DISCHARGE HOME.
--- NOTE | 2018-03-12 11:46 | PRM.PN ---
Mood: DENIES DEPRESSIVE SYPTOMS. Sleep: SLEPT "FAIRLY WELL" Appetite: GOOD Suidical thoughts: DENIES Homicidal thoughts: DENIES Recent stressors: INCREASED DEPRESSION Family support: GOOD Aggressive Behavior: NONE NOTED Ability to Perform ADL'sc: GOOD Psychotic sympstoms: NONE NOTED Manic Symptoms: NONE Living situation: WITH SPOUSE Illicit Drug usec: NONE Alcoholo use: NONE Tobacco use: NONE Family,PT,Surgical,&Current HX: (1) Major depressive disorder with psychotic features Anxity Symptoms: DENIES Anger/Irritablility: NONE NOTED Muscle Strength & Tone: WNL Gait & Station: WNL Appearance: Casual attire, Appears younger Attitude & Behaviour: Cooperative/Pleasant Mood & Affect: Euthymic/appr/congruent Orientation: Fully oriented per interv Attention/Concentration: Good attention, Good concentration Speech: Reg rate/vol/rhyth/prosod Judgement/Insight: Good judgement, Good insight Thought Process: Linear/goal directed Language: Romanian Thought content/Abnormal/Psych: None/normal Fund of Knowledge: WNL Associations: WNL/Normal Associations Memory (recent and remote): Gross int/not form assess Constitutional: None Neurological: None Psychiatric: None [place] I: DEPRESSIVE DISORDER, ANXIETY [place] II: BORDERLINE PERSONALITY DISORDER [place] III: SEE PMH/MEDICAL CHART [place] IV: INCREASED STRESS OF MENTAL ILLNESS [place] V: 60 Assessment/Plan Assessment/Plan Patient History: FHx: depression G8 SISTER FHx: suicide Cousin, Onset:Unknown (The patient talks about having a close cousin that completed suicide "a long time ago") Plan Vital Signs Date Time Temp Pulse Resp B/P (MAP) Pulse Ox O2 Delivery O2 Flow Rate FiO2 03/12/18 08:11 129/58 03/12/18 08:01 98.0 100 16 93 Room Air 98.0 Allergies Coded Allergies Type Severity Reaction Last Updated Verified aspirin Allergy Unknown 02/22/18 Yes celecoxib Allergy Unknown 02/22/18 Yes codeine Allergy Unknown 02/22/18 Yes cyclobenzaprine Allergy Unknown 02/22/18 Yes pregabalin Allergy Unknown 02/22/18 Yes zolpidem Allergy Unknown 02/22/18 Yes Intake and Output 03/12/18 07:00 Intake Total 1454 ml Balance 1454 ml Intake Oral 1454 ml THE PATIENT WAS SEEN BY GAURI ROTHMAN VIA TELEMEDICINE EQUIPMENT (SUPPORTED BY [facility]) ALONG WITH THE TREATMENT TEAM. SHE REPORTS THAT SHE IS DOING WELL OVERALL. SHE IS EATING AND SLEEPING WELL. SHE DENIES SI/HI/AV/VH. SHE IS TOLERATING HER MEDICATIONS WELL. SHE IS COOPERATIVE AND PARTICIPATES IN GROUPS. ASSESSMENT: DEPRESSION WITH PSYCHOTIC FEATURES, ANXIETY, CONVERSION DISORDER, PLAN: 1. DISCHARGE TO HOME TODAY. 2. CONTINUE CURRENT MEDICATIONS PRESCRIBED. STAFF AGREEABLE WITH PLAN 3. ALL PATIENT QUESTIONS ANSWERED RELATED TO MEDICATIONS, PLAN OF CARE, AND EXPECTED OUTCOMES. 4. SAFETY PLAN DISCUSSED. GAURI ROTHMAN NP Mar 12, 2018 11:46
[2018-03-12] MEDS ORDERED: DULO30CA2 PO (12:14)
[2018-03-12] MEDS ORDERED: BUSP10TA PO (12:14)
[2018-03-12] MEDS ORDERED: HALO5TAB PO (12:14)
--- NOTE | 2018-03-12 13:36 | NUR ---
DISCHARGE DISCHARGE INSTRUCTION GIVEN TO PT. PT SIGNED AND VERBALIZED UNDERSTANDING. MEDICATIONS CALLED INTO [facility] ON [facility]. [phone]. JUAN Ybarra CNA ASSISTED PT TO PRIVATE VEHICLE AND CONFIRMED THAT SAFETY BELT WAS IN PLACE AND SECURED. AT SIDE.
[2018-03-12 13:39] VITALS: BP 129/58
--- NOTE | 2018-03-12 22:48 | DSH ---
DATE OF DISCHARGE: 03/12/2018 DATE OF ADMISSION: 02/22/2018 DATE OF DISCHARGE: 03/12/2018 HOSPITAL COURSE: The patient is a 72-year-old female who was a voluntary admission to the Behavioral Health Unit in [facility]. The patient was having severe depression and psychotic symptoms. The patient was not functioning well at home. She was not sleeping and eating well. She was stabilized on the following psychotropic medications: BuSpar 10 mg p.o. b.i.d., Cymbalta 90 mg p.o. daily, Haldol 5 mg p.o. b.i.d. and Seroquel 50 mg p.o. at bedtime. She tolerated her medications fine. She was not suicidal or homicidal, when she discharged. She showed improvement in her mood. She showed improvement in her anxiety level. She was not overwhelmed. She was sleeping and eating well. She was compliant with her medications. She ____ outpatient psychiatry. She was going back home to live with her . DISCHARGE DIAGNOSES: Major depressive disorder with psychotic features; generalized anxiety disorder. DISCHARGE PLAN: 1. The patient is being discharged in stable condition. She is not suicidal or homicidal. She is tolerating her medications fine. 2. The patient will continue the above psychotropic medications at current doses. She will followup with Dr. Brown at [facility]. 3. She will followup with her general primary care doctor for general medical health issues. Jayne Yancey IV MD DR: /bradford JOB# [id number]
== END 2018-03-12 13:45 | disposition home or self-care (01) | DRG 885 ==
LOC: EEVIPCON 19:05 → GP 19:05
PROVIDERS: ADMIT Psychiatry & Neurology Psychiatry; ATTEND Psychiatry & Neurology Psychiatry
DX: F33.3 Major depressive disorder, recurrent, severe with psychotic symptoms (principal); K57.92 Diverticulitis of intestine, part unspecified, without perforation or abscess without bleeding; R45.851 Suicidal ideations; N18.4 Chronic kidney disease, stage 4 (severe); I12.9 Hypertensive chronic kidney disease with stage 1 through stage 4 chronic kidney disease, or unspecified chronic kidney disease; F41.1 Generalized anxiety disorder; G47.00 Insomnia, unspecified; M10.9 Gout, unspecified; M79.7 Fibromyalgia; G25.81 Restless legs syndrome; F60.3 Borderline personality disorder; E03.9 Hypothyroidism, unspecified; Z85.3 Personal history of malignant neoplasm of breast; Z87.891 Personal history of nicotine dependence
CPT/HCPCS: 36415; 80048; 80053; 80061; 81000; 82948; 83036; 83735; 85007; 85027; 87086; 93005; 97150; 97166; G8987; G8988; J1630; J8499